=== PATIENT | female | born 1990 | race Caucasian/White ===

== ENCOUNTER 2017-07-02 09:00 | Outpatient (RCR) | payer MEDICAID, SELFPAY ==
--- NOTE | 2017-07-02 12:13 | BH.SGPN ---
Service Group Progress Note - Session Psychotherapy Session #1 Date Open:: 07/02/17 Time Started:: 09:13 Time Stopped:: 10:03 Targeted Problem #:: 1 Type of Group:: Process Goal of Group:: The goal of today's group was to check-in with client's mood, stressors, and positives, review homework and introduce topic for the day. Client Response/Progress/Benefit:: Client reported feeling anxious and nervous given today is her first day in the program and she has never done any sort of group therapy before. Client reported she is seeking help because she has difficulty with managing her emotions. She explained that she can either be really angry at times or be crying for hours and not really know what to do manage those emotions. Client seemed to benefit from being oriented to the group process as well as receiving support from peers. Eye Contact:: Good Motor Activity:: Appropriate Appearance:: Casual Speech:: Appropriate Mood:: Anxious Affect:: Congruent Thoughts:: Linear, Logical, No evidence of hallucinations/delusions noted Staff Interventions:: Therapist used open-ended questions to elicit information about client's current stressors and mood state. Therapist was supportive by using active listening and reflection.
--- NOTE | 2017-07-02 14:07 | BH.SGPN ---
Service Group Progress Note - Session Psychotherapy Session #2 Date Open:: 07/02/17 9 group members Time Started:: 10:17 Time Stopped:: 11:15 Targeted Problem #:: 1 Type of Group:: Illness Management Goal of Group:: To increase understanding of what stress is, identify current life stressors, and connect impact stressors have on mental health. Client Response/Progress/Benefit:: Client responded well to session, quiet unless prompted by therapist. Client appeared to connect with the quote nodding to comments made by peers. Client shared I seem to stress about everything. Client helped the group process eustress versus unhealthy, chronic stress. Client identified her major stressors to be money, relationships, and feeling responsible for everyone's needs. Client stated her stress jar is overflowing and I can't manage my emotions. Client stated as a result she gets angry and has increased crying spells. Client appeared to benefit from gaining awareness of her personal stressors and how stress impacts mental health. Eye Contact:: Good Motor Activity:: Appropriate Appearance:: Casual Speech:: Appropriate Mood:: Anxious Affect:: Congruent Thoughts:: Linear, No evidence of hallucinations/delusions noted Staff Interventions:: Therapist facilitated discussion about stress. Therapist facilitated an activity in which group members were asked to identify various stressors they have in their life currently. Therapist instructed group members to indicate if certain stressors were larger than others. Therapist led processing of each member?s stress jar and helped them connect impact the stress has on their mental health. Psychotherapy Session #3 Date Open:: 07/02/17 group members Time Started:: 11:25 Time Stopped:: 12:15 Targeted Problem #:: 1 Type of Group:: Functional Skills Development Goal of Group:: To identify what stressors have control over and what stressors have no control over. Another goal was to increase repertoire of healthy strategies to help manage stress. Client Response/Progress/Benefit:: Client responded well to session, active participant. Client appeared to connect with the activity stating, you have to tell your emotions to your supports. Client helped group process the importance of focusing on stressors in her control versus out of her control. Client identified working on managing emotions as a stressor in her control. Client helped the group develop stress management strategies including: deep breathing, prioritizing, communicating with supports, and having a plan. Client appeared to benefit from increasing her repertoire of stress reduction techniques. Eye Contact:: Good Motor Activity:: Appropriate Appearance:: Casual Speech:: Appropriate Mood:: Euthymic Affect:: Congruent Thoughts:: Linear, No evidence of hallucinations/delusions noted Staff Interventions:: Therapist facilitated discussion about control versus no control and helped group members connect the concept to stressors. Therapist led discussion about importance of putting forth more energy on those stressors they can control. Therapist led an activity aimed at inducing stress to help clients use in the moment coping strategies and support. Therapist facilitated brainstorming of strategies to help manage stress level. Therapist provided support by using active listening and providing feedback.
--- NOTE | 2017-07-02 14:27 | BH.COMM ---
Communication Note - Communication with Client Communication Note: This therapist met with client to follow up as it was client's first day in IOP. Client reported she enjoyed the first day as she felt encouraged to share her emotions and client connected with the topic. Therapist provided emotional support and answered client's question about IOP. Therapist informed client her individual therapist will meet with her this week or next.
--- NOTE | 2017-07-02 14:31 | BH.COMM_ITS ---
Communication Note - Communication with Client Communication Note: This therapist met with client to follow up as it was client 's first day in IOP. Client reported she enjoyed the first day as she felt encouraged to share her emotions and client connected with the topic. Therapist provided emotional support and answered client's question about IOP. Therapist informed client her individual therapist will meet with her this week or next.
--- NOTE | 2017-07-03 15:45 | BH.SGPN ---
Service Group Progress Note - Session Psychotherapy Session #1 Date Open:: 07/03/17 Time Started:: 09:10 Time Stopped:: 10:00 Type of Group:: Process - 6 group members Goal of Group:: The goal of today's group was to check-in with client's mood, stressors, and positives, review homework and introduce topic for the day. Client Response/Progress/Benefit:: Active participant in group discussions. Emotion for today is irritated. Shared with the group some frustration related to upcoming court issues. Reports increased stress and overwhelming emotions. Vented frustrations to the group. Was able to identify main concern being lack of control over the court issues and the court's decision. Group was able to provide feedback on managing anxiety related to situation in which we have no control. Pt was receptive. Progress noted in regards to increased awareness. Benefited from group support and feedback. Will continue in IOP to decrease depression, prevent decompensation, and stabilize mood. Eye Contact:: Good Motor Activity:: Restless Appearance:: Casual Speech:: Appropriate Mood:: Anxious, Depressed Affect:: Congruent Thoughts:: Linear, Logical, No evidence of hallucinations/delusions noted Staff Interventions:: Therapist used open-ended questions to elicit information about client's current stressors and mood state. Therapist was supportive by using active listening and reflection
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
--- NOTE | 2017-07-04 14:45 | BH.SGPN_ITS ---
Service Group Progress Note - Session Psychotherapy Session #3 Date Open:: 07/04/17 - 10 group members Time Started:: 11:25 Time Stopped:: 12:15 Targeted Problem #:: 1 Type of Group:: Functional Skills Development Goal of Group:: To identify personal barriers that get in the way of accomplishing tasks and identify internal and external resources to help overcome difficult situations. Client Response/Progress/Benefit:: Client responded well to session, active participant. Client reported ?most of the time I think I?ll never overcome the situation I?m in? which makes client avoid solutions and increases her depression. Client shared filing for divorce and getting out of an unhealthy relationship as an example of a time when client overcame an impossible situation. Client stated that communication and support from others are needed to overcome challenging situations. Client helped the group develop a list of internal and external resources to help overcome impossible situations. Client stated ?I will always tell myself everything is possible? as a way to promote recovery. Client appeared to benefit from increasing insight of internal and external resources that will help client overcome mental health barriers. Eye Contact:: Good Motor Activity:: Appropriate Appearance:: Casual Speech:: Appropriate Mood:: Euthymic Affect:: Congruent Thoughts:: Linear, No evidence of hallucinations/delusions noted Staff Interventions:: Therapist facilitated discussion about internal and external resources and helped clients connect various internal resources they use. Therapist provided group members with a handout that gave information about various external resources the clients could utilize to get support. Therapist gave clients a worksheet in which they were asked to identify several barriers that get in their way to overcoming difficult situations. They also were asked to identify several internal and external resources they could use when needed.
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
--- NOTE | 2017-07-04 15:34 | BH.DR.ITP ---
Initial Treatment Plan - Patient Information Visit Information: ADMISSION DATE: EXPECTED LOS: 4-6 weeks Diagnoses:: Bipolar 2 F 31.81. PTSD - Problems/Symptoms Problem #1:: Mood instability Symptom:: Mood cycling, depression, hypomania, biologic disruption of sleep and appetite, passive thoughts of Symptom:: Anxiety Problem #2:: rumination, intrusive traumatic thoughts
--- NOTE | 2017-07-07 10:51 | BH.SGPN_ITS ---
Service Group Progress Note - Session Psychotherapy Session #2 Date Open:: 07/03/17 Time Started:: 10:13 Time Stopped:: 11:13 Targeted Problem #:: 1 Type of Group:: Illness Management - 7 participants Goal of Group:: To increase understanding of a crisis and improve client?s awareness of personal warning signs before crisis. Eye Contact:: Good Motor Activity:: Appropriate Appearance:: Casual Speech:: Appropriate Mood:: Euthymic Affect:: Congruent Thoughts:: Linear, Logical, No evidence of hallucinations/delusions noted Staff Interventions:: Therapist facilitated group discussion about defining a crisis and specifying various events that are considered a crisis. Therapist led group in an activity in which group members had to identify their thoughts and emotions attached to being in a crisis. Therapist provided support by using active listening and providing feedback. Psychotherapy Session #3 Date Open:: 07/03/17 Time Started:: 11:22 Time Stopped:: 12:24 Targeted Problem #:: 1 Type of Group:: Functional Skills Development - 7 participants Goal of Group:: To increase awareness of warning signs before a crisis and identify interventions/coping strategies that would help clients proactively manage potential crises. Eye Contact:: Good Motor Activity:: Appropriate Appearance:: Casual Speech:: Appropriate Mood:: Euthymic Affect:: Congruent Thoughts:: Linear, Logical, No evidence of hallucinations/delusions noted Staff Interventions:: Therapist led the group in discussion about identifying personal warning signs before a crisis and importance of being aware of those signs. Therapist provided the group with various types of items and asked each group member to select five items that represent something that would be helpful in managing their warning signs of a crisis. Therapist facilitated group proc essing of the crisis emergency kits each group member created. Therapist used open-ended questions to encourage elaboration of each item chosen for their kit. Therapist helped clients connect how the crisis emergency kit could help be a crisis prevention tool.
--- NOTE | 2017-07-07 15:00 | BH.SGPN_ITS ---
Service Group Progress Note - Session Psychotherapy Session #2 Date Open:: 07/07/17 group members Time Started:: 10:17 Time Stopped:: 11:15 Targeted Problem #:: 1 Type of Group:: Illness Management Goal of Group:: To increase understanding of communication and the various types of communication. Another goal was to increase understanding of impact communication styles can have. Client Response/Progress/Benefit:: Client responded well to session, quiet at times, but providing input occasionally. Client seemed to connect with the quote sharing she has a hard time communicating ?my emotions in the correct way. ? Client helped the group identify barriers to communication such as depression , anxiety, high emotions, and mind-reading. Client helped group identify various communication styles and reported she uses ?mostly passive? as client tends to avoid communicating needs as she does not want conflict. Client shared at times she can be aggressive ?if I get attacked I?ll attack back.? Client stated these communication styles negatively impact client?s mental health ? because I let my emotions take over.? Client appeared to benefit from learning the different types of communication styles as well as increasing awareness of how communication impacts mental health. Client progressing as shown by her increased insight to how emotional regulation will improve client?s communication. Eye Contact:: Good Motor Activity:: Appropriate Appearance:: Disheveled Speech:: Appropriate Mood:: Euthymic Affect:: Congruent Thoughts:: Linear, No evidence of hallucinations/delusions noted Staff Interventions:: Therapist facilitated the group discussion about communication and explained the different types of communication. Therapist assisted group members in connecting the communication styles to the way they communicate and impact the communication style has on their relationships. Therapist provided support by using active listening and providing feedback. Psychotherapy Session #3 Date Open:: 07/07/17 group members Time Started:: 11:25 Time Stopped:: 12:15 Targeted Problem #:: 1 Type of Group:: Functional Skills Development Goal of Group:: To identify important components of communication and practice specific, clear communication. Client Response/Progress/Benefit:: Client responded well to session, active participant. Client reported she wants to work on being more assertive, so in the activity she practiced remaining calm and being direct even when her partner was confused. Client helped the group identify strategies to increase assertive communication including being aware of body language and tone of voice , expressing warning signs and triggers with supports, and managing emotions. Client reported she plans to work on being more assertive ?by not letting my emotions take over.? Client appeared to benefit from identifying ways to improve her communication. Client seems to be progressing as shown by her willingness to implement assertive communication with her supports, but can continue to have awareness of warning signs. Eye Contact:: Good Motor Activity:: Appropriate Appearance:: Disheveled Speech:: Appropriate Mood:: Euthymic Affect:: Constricted Thoughts:: Linear, No evidence of hallucinations/delusions noted Staff Interventions:: Therapist led the discussion about important components of effective communication. Therapist provided each group member with the same three materials and broke the group into pairs. Therapist facilitated a communication activity in which the group members would have to achieve a goal by using effective communication to achieve such goal. Therapist processed the activity with the group.
--- NOTE | 2017-07-07 15:04 | BH.SGPN_ITS ---
Service Group Progress Note - Session Psychotherapy Session #1 Date Open:: 07/07/17 Time Started:: 09:05 Time Stopped:: 10:00 Type of Group:: Process - 6 group members Goal of Group:: The goal of today's group was to check-in with client's mood, stressors, and positives, review homework and introduce topic for the day. Client Response/Progress/Benefit:: Active participant in group discussion. Provided feedback when appropriate. Shared with the group that she had stepped out of her comfort zone this past weekend by going to [place] [employer] with her . Discussed how this trip was an anxiety producing situation, however she felt confident she could manage her symptoms. Continues to struggle with lack of control over certain situations in her life. Group provided feedback on this. Emotion for today is anxious. Progress noted as she was able to step out of her comfort zone with increased confidence this past weekend. Benfited from group support and feedback. Continued treatment to stablize mood, prevent decompensation, and decrease depression/anxiety. Eye Contact:: Good Motor Activity:: Appropriate Appearance:: Casual Speech:: Appropriate Mood:: Anxious Affect:: Congruent Thoughts:: Linear, Logical, No evidence of hallucinations/delusions noted Staff Interventions:: Therapist used open-ended questions to elicit information about client's current stressors and mood state. Therapist was supportive by using active listening and reflection.
--- NOTE | 2017-07-07 15:51 | BH.MDN ---
Multi-Disciplinary Note - Note 60-min Individual Time Started:: 12:28 Date: 07/07/17 Time Stopped:: 13:25
--- NOTE | 2017-07-07 15:51 | BH.MTP ---
Master Treatment Plan - Patient Information Program Physician:: Cris Pal Primary Therapist:: April Arceo - Psychiatric Diagnoses Psychiatric Diagnoses:: Diagnosis. Bipolar 2 disorder of . Anxiety unspecified. PTSD. Opiate use disorder. Cannabis use disorder Diagnosis Code(s):: F - Estimated LOS Estimated LOS (in weeks):: 6
--- NOTE | 2017-07-09 15:20 | BH.SGPN ---
Service Group Progress Note - Session Psychotherapy Session #1 Date Open:: 18 - 8 group members Time Started:: 09:06 Time Stopped:: 10:15 Targeted Problem #:: 1 Type of Group:: Process Goal of Group:: The goal of today's group was to check-in with client's mood, stressors, and positives, and review homework. Client Response/Progress/Benefit:: Client responded well to session, active participant. Client reports feeling calm and hopeful today as client met with her privacy attorney yesterday and reports they think things will go in my favor. Client shared there are components in the case out of client's control that could potentially increase anxiety, but client shared she has been focusing on stressors in her control which has helped client manage emotions. Client reflected on positive coping skills she has been using such as writing and going to mosque. Client appeared to benefit from focusing on stressors in her control. Client seems to be progressing with increased insight to warning signs and generalizing healthy coping skills, but can continue to benefit from emotional regulation. Eye Contact:: Fair Motor Activity:: Appropriate Appearance:: Casual Speech:: Appropriate Mood:: Euthymic Affect:: Constricted Thoughts:: Linear, No evidence of hallucinations/delusions noted Staff Interventions:: Therapist used open-ended questions to elicit information about client's current stressors and mood state. Therapist was supportive by using active listening and reflection.
--- NOTE | 2017-07-09 15:27 | BH.SGPN_ITS ---
Service Group Progress Note - Session Psychotherapy Session #1 Date Open:: 18 - 8 group members Time Started:: 09:06 Time Stopped:: 10:15 Targeted Problem #:: 1 Type of Group:: Process Goal of Group:: The goal of today's group was to check-in with client's mood, stressors, and positives, and review homework. Client Response/Progress/Benefit:: Client responded well to session, active participant. Client reports feeling calm and hopeful today as client met with her associate attorney yesterday and reports they think things will go in my favor. Client shared there are components in the case out of client's control that could potentially increase anxiety, but client shared she has been focusing on stressors in her control which has helped client manage emotions. Client reflected on positive coping skills she has been using such as writing and going to [employer]. Client appeared to benefit from focusing on stressors in her control. Client seems to be progressing with increased insight to warning signs and generalizing healthy coping skills, but can continue to benefit from emotional regulation. Eye Contact:: Fair Motor Activity:: Appropriate Appearance:: Casual Speech:: Appropriate Mood:: Euthymic Affect:: Constricted Thoughts:: Linear, No evidence of hallucinations/delusions noted Staff Interventions:: Therapist used open-ended questions to elicit information about client's current stressors and mood state. Therapist was supportive by using active listening and reflection.
--- NOTE | 2017-07-09 16:15 | BH.SGPN ---
Service Group Progress Note - Session Psychotherapy Session #2 Date Open:: 07/09/17 Time Started:: 10:20 Time Stopped:: 11:15 Targeted Problem #:: 1 Type of Group:: Illness Management - 7 group members Goal of Group:: To increase understanding of cognitive distortions, identify examples of when have had unhelpful thinking, and increase awareness of the impact cognitive distortions have on mental health. Client Response/Progress/Benefit:: Pt listened attentively to others, at times she contributed to discussion. Pt connected with others about impact thoughts can have on ability to function. Pt able to identify various distorted thought patterns and connect impact the thought has on emotions and behavior. Pt reported she learned it's important to be aware if she is jumping to the negatives and be mindful if she is using should and must. Pt seemed to benefit from increasing awareness of cognitive distortions. Eye Contact:: Fair Motor Activity:: Appropriate Appearance:: Casual Speech:: Appropriate Mood:: Anxious, Dysthymic Affect:: Constricted Thoughts:: Linear, Logical, No evidence of hallucinations/delusions noted Staff Interventions:: Therapist provided group members with a handout that listed ten cognitive distortions with examples. Therapist facilitated group discussion about cognitive distortions. Therapist led group members in an activity to help them understand the impact cognitive distortions can have on emotions and behavior. Therapist provided support by using active listening and providing feedback. Psychotherapy Session #3 Date Open:: 07/09/17 Time Started:: 11:30 Time Stopped:: 12:20 Targeted Problem #:: 1 Type of Group:: Functional Skills Development - 7 group members Goal of Group:: To identify ways of defeating cognitive distortions and rehearse defeating the identified cognitive distortion. Client Response/Progress/Benefit:: Pt contributed positively to discussion and listened attentively to others. Pt engaged in challenge activity, adding her thoughts and ideas. Pt worked cooperatively with others to reframe distorted thoughts. Pt identified she is going to apply today's topic in her daily life by being more aware of the wording she uses, focus more on the positives versus going to the negatives right away. Pt seemed to benefit from practicing reframing distorted thought patterns. Eye Contact:: Fair Motor Activity:: Appropriate Appearance:: Casual Speech:: Appropriate Mood:: Anxious, Dysthymic Affect:: Constricted Thoughts:: Linear, Logical, No evidence of hallucinations/delusions noted Staff Interventions:: Therapist utilized an activity as a tool in helping clients connect the amount of effort one will need to put forth to defeat cognitive distortions. Therapist provided group members with a handout to use as an aid when trying to defeat their unhelpful thinking. Therapist processed the worksheet with group members, helping them reframe the cognitive distortions.
--- NOTE | 2017-07-10 10:41 | BH.SGPN_ITS ---
Service Group Progress Note - Session Psychotherapy Session #1 Date Open:: 18 - 6 group members Time Started:: 09:06 Time Stopped:: 10:03 Targeted Problem #:: 1 Type of Group:: Process Goal of Group:: The goal of today's group was to check-in with client's mood, stressors, and positives, and review homework. Client Response/Progress/Benefit:: Client responded well to session, receptive to feedback given by peers. Client reports feeling tired, anxious, but mostly happy today as client spent yesterday evening helping a friend in need which resulted in client taking on too much and having increased anxiety. Client shared she is very empathetic, especially with mental health and substance abuse , which led client to reach out to a friend who was expressing suicidal thoughts. Client reported she is glad to have helped, but I always try to help too much and then I get exhausted myself. Client was receptive to group feedback on how to balance empathy and self-care through boundary setting. Client reported she plans to manage her stress today through writing and identifying personal boundary rules. Client stated, I need to know I can only do so much for others. Client appeared to benefit from gaining ideas and emotional support from group members. Client progressing as shown by report of increased self-awareness, but can continue to benefit from setting healthy boundaries. Eye Contact:: Good Motor Activity:: Appropriate Appearance:: Casual Speech:: Appropriate Mood:: Euthymic, Anxious Affect:: Congruent - client became tearful when talking about a friend who is struggling Thoughts:: Linear, No evidence of hallucinations/delusions noted Staff Interventions:: Therapist used open-ended questions to elicit information about client's current stressors, use of coping skills, and mood state. Therapist was supportive by using active listening and reflection.
--- NOTE | 2017-07-10 15:37 | BH.SGPN ---
Service Group Progress Note - Session Psychotherapy Session #2 Date Open:: 07/10/17 Time Started:: 10:14 Time Stopped:: 11:12 Targeted Problem #:: 1 Type of Group:: Illness Management - 5 participants Goal of Group:: To identify the importance of change, increase understanding of difficulty of making change, identify what clients would like to make changes in and identify the barriers or obstacles that get in the way of change. Staff Interventions:: Therapist facilitated discussion about change and helped client?s make connections of why change is important. Therapist led group in an experiential activity which involved client?s identifying changes want to make and barriers that get in the way of making those changes. Therapist utilized activity as a tool to help client?s make connections of difficulties in making changes and identify what helps overcome barriers to change. Psychotherapy Session #3 Date Open:: 07/10/17 Time Started:: 11:20 Time Stopped:: 12:10 Targeted Problem #:: 1 Type of Group:: Functional Skills Development - 7 participants Goal of Group:: To identify specific barriers to an identified change clients would want to make and identify ways to overcome those barriers. Staff Interventions:: Therapist facilitated discussion about what helped the group overcome challenges that came about during the experiential activity. Therapist utilized the activity as a tool in relating those experiences to ways to overcome barriers with challenges in their life when trying to make change. Therapist group into smaller groups and had them brainstorm ways to overcome certain barriers to their identified change. Therapist provided support by using reflective listening and providing feedback.
--- NOTE | 2017-07-11 15:12 | BH.COMM ---
Communication Note - Communication with Client Communication Note: Therapist followed-up with CLient as she no showed for her scheduled appointment on this date. CLient indicated that she did not have her phone on her to call and cancel this morning but that her daughter had returned from CLient mother's home early and client did not have a sitter. Client indicates plans to attend IOP program on Friday 07/14.
[2017-08-22 11:33] VITALS: BP 107/76; PULSE 74; RESP 14
== END 2017-07-12 23:59 ==
LOC: BHIOP 09:00
PROVIDERS: Visit Provider Psychiatry & Neurology Psychiatry
DX: F31.81 Bipolar II disorder (principal); F41.9 Anxiety disorder, unspecified; F43.10 Post-traumatic stress disorder, unspecified; F11.20 Opioid dependence, uncomplicated; F12.20 Cannabis dependence, uncomplicated
CPT/HCPCS: 99204; H0035; H2012; H2020; T1002; 90837

== ENCOUNTER 2017-07-14 09:00 | Outpatient (RCR) | payer MEDICAID, SELFPAY ==
[2017-07-13 01:20] VITALS: PULSE 74; RESP 14
--- NOTE | 2017-07-14 12:14 | BH.SGPN ---
Service Group Progress Note - Session Psychotherapy Session #1 Date Open:: 07/14/17 Time Started:: 09:05 Time Stopped:: 10:04 Targeted Problem #:: 1 Type of Group:: Process - 7 group members Goal of Group:: The goal of today's group was to check-in with client's mood, stressors, and positives, review homework and introduce topic for the day. Client Response/Progress/Benefit:: Client reported she spent a lot of time with her daughter and her daughter had couple friends over. Client shared there were several times over the weekend she was annoyed, but used healthy skills like looking for the positives of the situation. Client reported she is feeling anxious today because she has decided to move forward by putting a motion in for no more overnight visits for her daughter to visit daughter's grandmother. Client expressed frustration with daughter's paternal side of the family and has decided it's time to take action and stand up for herself and her daughter. Client demonstrating progress as evidenced by increased self confidence, setting boundaries and using healthy skills. Client seemed to benefit from expressing thoughts and emotions as well as support from others. Eye Contact:: Good Motor Activity:: Appropriate Appearance:: Casual Speech:: Appropriate Mood:: Euthymic Affect:: Congruent Thoughts:: Linear, Logical, No evidence of hallucinations/delusions noted Staff Interventions:: Therapist used open-ended questions to elicit information about client's current stressors and mood state. Therapist was supportive by using active listening and reflection.
--- NOTE | 2017-07-14 14:00 | BH.SGPN_ITS ---
Service Group Progress Note - Session Psychotherapy Session #2 Date Open:: 07/14/17 group members Time Started:: 10:17 Time Stopped:: 11:14 Targeted Problem #:: 1 Type of Group:: Illness Management Goal of Group:: The goal of group was to increase understanding of coping strategies and impact problems have on self. Another goal was to practice utilizing coping skills in the moment. Client Response/Progress/Benefit:: Client responded well to session, engaged in discussion. Client appeared to connect with the quote, sharing ?sometimes problems are the problem, but a lot of the time it?s us dealing with it.? Client discussed healthy versus unhealthy coping skills and shared coping skills are often learned or developed to adjust to a situation. Client shared in the past she has used unhealthy coping skills to numb and avoid, and others in the group connected with this as well. Client participated in an activity aimed to help client's use in the moment coping strategies. Client shared ?I was getting really frustrated, but I don?t give up easy.? Client reported it is important to have a good base of internal and external coping skills. Client appeared to benefit from increasing awareness of how one learns coping skills and the importance of having a balance of internal and external coping skills. Client demonstrating progress with setting boundaries and focusing on self-care , but can continue to benefit from ongoing emotional regulation. Eye Contact:: Good Motor Activity:: Appropriate Appearance:: Casual Speech:: Appropriate Mood:: Euthymic, Irritable - during activity Affect:: Constricted Thoughts:: Linear, No evidence of hallucinations/delusions noted Staff Interventions:: Therapist facilitated the group discussion about coping strategies. Therapist provided group members with folders and gave them the challenge to work together and build the tallest tower with the given supplies. Therapist utilized the activity as a tool to process what it feels like when dealing with problems and what strategies they used to cope throughout activity. Psychotherapy Session #3 Date Open:: 07/14/17 - group members Time Started:: 11:22 Time Stopped:: 12:15 Targeted Problem #:: 1 Type of Group:: Functional Skills Development Goal of Group:: Goal was to increase client?s self-awareness on their use of coping strategies and increase repertoire of healthy coping strategies. Client Response/Progress/Benefit:: Client responded well to session, providing ideas during discussion. Client helped the group develop a list of coping skills for the following categories: distraction, self-love, thought challenge, emotional release, and grounding. Client stated, ?you have to use all of them, not just one kind.? Client created a 'coping skills menu' which included, listening to music, cleaning, calling a positive support, coloring, walking goal setting, prayer, and using thought logs. Client reported she has been working to implement healthy coping skills for emotional release, but shared she can increase her use of thought challenging skills. Client appeared to benefit from gaining awareness of the various types of coping skills and the purpose each category serves. Client progressing as evidenced by her report of generalizing healthy coping skills, but can continue to benefit from consistency and ongoing mood stability. Eye Contact:: Good Motor Activity:: Appropriate Appearance:: Casual Speech:: Appropriate Mood:: Euthymic Affect:: Congruent Thoughts:: Linear, No evidence of hallucinations/delusions noted Staff Interventions:: Therapist facilitated discussion about the different types of coping skills. Therapist led group in an activity in which group members were asked to brainstorm coping strategies that fit in each coping skill category. Therapist reviewed each coping strategy with the group and led a discussion about whether the coping strategies identified were healthy or unhealthy. Therapist provided homework in which group members creating a coping skills menu and would practice two skills a day.
--- NOTE | 2017-07-14 14:12 | BH.MDN_ITS ---
Multi-Disciplinary Note - Note 60-min Individual Time Started:: 12:27 Date: 07/14/17 Purpose of session/treatment goals addressed:: The purpose of this session was to check-in with Client regarding current stressors, use of healthy coping skills, and symptom management. Another goal was to increase Client understanding of Bipolar diagnosis and aid Client in identifying common symptoms and warning signs for len and depression to begin identifying appropriate coping mechanisms Client may use during these times. Provided Client with worksheet to begin tracking mood throughout the week to identify potential patterns, triggers, warning signs. Eye Contact:: Good Motor Activity:: Appropriate Appearance:: Casual Speech:: Appropriate Mood:: Euthymic Affect:: Full, Congruent Thoughts:: Linear, Logical, No evidence of hallucinations/delusions noted Staff Interventions:: Therapist asked open-ended questions to ellicit additional information regarding Client current symptoms, stressors, and treatment goal progress. Provided psychoeducation regarding Bipolar Disorder, common symptoms, behaviors and implications on mental health. Worked with Client on identifying symptoms and warning signs personally experienced as well as introduced concept of mood tracking for Client to begin identifying potential patterns, warning signs, triggers. Therapist discussed with Client goals for upcoming family session with her eduardo?. Client Response:: Client well engaged and attentive throughout session. She discussed having had a good weekend as she and her firadha? had gone to a [place] and spent some quality time together. Client discussed feeling proud of herself as her firadha? had given her $70 to spend while he played besomebody. and she was able to successfully refrain from spending any money. Client shared that prior to beginning IOP program should would have blown right through all that. Client additionally expressed pride in her ability to refrain from consuming more than 1 alcoholic beverage. Client discussed feeling somewhat anxious while in the casino but found that focusing on the present and trying to remind herself to reframe her thoughts helped prevent her anxiety from escalating and stopped Client from resorting to negative forms of coping. Client expressed genuine interest in increasing her understanding of recent Bipolar dx as she has had no previous education as to what dx means. Therapist discussed symptoms of hypomania, len, and depression with Client who was able to make connections between information discussed and previous symptoms. CLient discussed feeling as though she can relate to many of the symptoms described both within the manic and depressive states. CLient went on to elaborate upon experiencing increased agitation, starting and not completing tasks, as well as impulsivity. She was open to the idea of tracking her mood daily in order to begin identifying potential patterns of behavior/triggers/warning signs and responded well to the suggestion of asking supports if they notice anything that may signal moods shifting. Client discussed she would like to continue to work on increasing understanding of Bipolar Disorder effective ways her supports may assist her during the family session scheduled for . Risks/Concerns:: Client denies any active SI, plan, or intent as of 07/14. She identifies her daughter and eduardo? as her greatest motivators to continue to work on managing mental health symptoms. Client is future oriented as she discussed plans to meet with her employee benefits attorney this week as well as indicates intending to attend group tomorrow. Client expressed an ability to maintain safety, is aware of crisis resources, and willing to seek help if needed. Progress Toward Goals/Plan:: Progress made. Client reports decreased agitation, crying episodes, and verbal outbursts since beginning the IOP program. She attributes this to increased insight into her own mental health symptoms as well as beginning to establish healthy coping skills. Client indicates increased ability to challenge negative thoughts when they occur and is beginning to see things more positively. Client reports continued difficulties in managing her anger related to past trauma which has impacted client's anxiety at times and led to negative self-talk. Client reports wanting to continue to improve emotion regulation skills as well as increase healthy supports. Plan is to continue with current tx goals and remain in IOP program to further improve healthy utilization of skills learned. Time Stopped:: 13:20
--- NOTE | 2017-07-16 11:35 | BH.SGPN ---
Service Group Progress Note - Session Psychotherapy Session #1 Date Open:: 18 - 8 participants Time Started:: 09:03 Time Stopped:: 10:10 Targeted Problem #:: 1 Type of Group:: Process Goal of Group:: The goal of today's group was to check-in with client's mood, stressors, and positives, and review homework. Client Response/Progress/Benefit:: Client responded well to session, open about her recent setbacks. Client reports feeling exhausted today as client woke up in a crying spell yesterday and couldn't take it. Client at first was unable to identify a trigger, but then reported it could have been due to severe tooth pain and therapy opening a lot of old stuff. Client shared although she was thrown off by her crying, she recognized I didn't let it consume my whole day. Client reported she tried to focus on positives, which demonstrates progress as client stated in the past I would have been negative all day. Client appeared to benefit from processing yesterday's setback and identifying ways she can grow from the experience. Client seems to be progressing as shown by her report of more improved emotional regulation skills and using more open communication. However, client can continue to benefit from IOP to promote mood stability. Eye Contact:: Good Motor Activity:: Restless - AEB shaking leg Appearance:: Neat Speech:: Appropriate Mood:: Anxious Affect:: Constricted Thoughts:: Linear, No evidence of hallucinations/delusions noted Staff Interventions:: Therapist used open-ended questions to elicit information about client's current stressors and mood state. Therapist was supportive by using active listening and reflection.
--- NOTE | 2017-07-17 14:39 | BH.SGPN ---
Service Group Progress Note - Session Psychotherapy Session #2 Date Open:: 07/17/17 - 7 group members Time Started:: 10:10 Time Stopped:: 11:03 Targeted Problem #:: 1 Type of Group:: Illness Management Goal of Group:: To increase understanding of pitfalls and impact can have on mental health. Client Response/Progress/Benefit:: Client responded well to session, active participant. Client connected with quote stating, ?nothing in life is easy, so you might as well take the right path.? Client identified pitfalls as difficulties, setbacks, and hardships. Client shared not being able to say ?no? is a pitfall. Client shared gaining awareness, managing emotional reaction, and being willing to accept help are all needed to avoid pitfalls. Client appeared to benefit from increasing awareness of how pitfalls impact mental health. Progress noted as shown by client?s generalization of coping skills, but can continue to benefit from emotional regulation. Eye Contact:: Good Motor Activity:: Appropriate Appearance:: Casual Speech:: Appropriate Mood:: Anxious Affect:: Full Thoughts:: Linear, No evidence of hallucinations/delusions noted Staff Interventions:: Therapist facilitated discussion about pitfalls and assisted group in identifying common pitfalls that can set you back. Therapist led group in an activity to help group understand impact pitfalls can have on oneself and identify strategies that could help you get back on the right path. Therapist provided support by using active listening and providing feedback. Psychotherapy Session #3 Date Open:: 07/17/17 - 6 group members Time Started:: 11:10 Time Stopped:: 12:10 Targeted Problem #:: 1 Type of Group:: Functional Skills Development Goal of Group:: To identify personal pitfalls and what keeps them stuck from moving forward. Client Response/Progress/Benefit:: Client responded well to session, providing good insight. Client identified her personal pitfalls as: negative thinking, low self-esteem, len, impulsivity, and not taking care of physical health. Client shared she plans to use today?s topic by ?knowing my warning signs, keeping awareness, and taking a step back to move forward.? Client also shared reaching out and communicating with her supports will help prevent client from falling into pitfalls. Client appeared to benefit from identifying strategies to keep client from falling into her pitfalls. Client to continue IOP to promote gains and challenging negative thinking. Eye Contact:: Good Motor Activity:: Appropriate Appearance:: Casual Speech:: Appropriate Mood:: Euthymic Affect:: Congruent Thoughts:: Linear, No evidence of hallucinations/delusions noted Staff Interventions:: Therapist facilitated activity in which group members were given the task to identify personal pitfalls and what keeps them stuck from moving past the pitfall. Therapist provided group members with the homework assignment of identifying strategies that can help them overcome pitfalls.
--- NOTE | 2017-07-23 11:51 | BH.SGPN ---
Service Group Progress Note - Session Psychotherapy Session #1 Date Open:: 07/23/17 Time Started:: 09:08 Time Stopped:: 10:08 Targeted Problem #:: 1 Type of Group:: Process - 5 participants Client Response/Progress/Benefit:: Client attentive and responded well to session. She was engaged throughout discussion and provided supportive feedback to fellow participants. 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 CLient went on to described that the agency had recieved false information that put her benefits into question. She shared initially wanting to feed into her anger and verbally lashout at the stockroom keeper in the agency as well as go after the person who she suspected of creating the complications. CLient proudly reported being able to reming herself to take a step back and pump my breaks. She shared using her thought challenging skills to ask herself what's the worst that will happen if I didn't do anything wrong as well a reframed the situation. CLient indicated I knew she wanted to frustrate me which she did at first; but, I was able to tell myself if I don't let it frustrate me she didn't win. Client benefitted reflecting and celebrating her progress in managing agitation with the group. Client recommended continued IOP to further focus on identifying warning signs for agitation and implement preventative strategies. Eye Contact:: Good Motor Activity:: Appropriate Appearance:: Casual Speech:: Appropriate Mood:: Euthymic Affect:: Full Thoughts:: Linear, Logical, No evidence of hallucinations/delusions noted Staff Interventions:: Therapist used open-ended questions to elicit information about client's current stressors and mood state. Therapist was supportive by using active listening and reflection.
--- NOTE | 2017-07-23 12:04 | BH.SGPN_ITS ---
Service Group Progress Note - Session Psychotherapy Session #1 Date Open:: 07/23/17 Time Started:: 09:08 Time Stopped:: 10:08 Targeted Problem #:: 1 Type of Group:: Process - 5 participants Client Response/Progress/Benefit:: Client attentive and responded well to session. She was engaged throughout discussion and provided supportive feedback to fellow participants. Client shared being glad she was back in group as she had to miss the past few days due to a misunderstanding at social media intern. CLient went on to described that the agency had recieved false information that put her benefits into question. She shared initially wanting to feed into her anger and verbally lashout at the tobacco grower in the agency as well as go after the person who she suspected of creating the complications. CLient proudly reported being able to reming herself to take a step back and pump my breaks. She shared using her thought challenging skills to ask herself what's the worst that will happen if I didn't do anything wrong as well a reframed the situation. CLient indicated I knew she wanted to frustrate me which she did at first; but, I was able to tell myself if I don't let it frustrate me she didn't win. Client benefitted reflecting and celebrating her progress in managing agitation with the group. Client recommended continued IOP to further focus on identifying warning signs for agitation and implement preventative strategies. Eye Contact:: Good Motor Activity:: Appropriate Appearance:: Casual Speech:: Appropriate Mood:: Euthymic Affect:: Full Thoughts:: Linear, Logical, No evidence of hallucinations/delusions noted Staff Interventions:: Therapist used open-ended questions to elicit information about client's current stressors and mood state. Therapist was supportive by using active listening and reflection.
--- NOTE | 2017-07-23 15:36 | BH.SGPN_ITS ---
Service Group Progress Note - Session Psychotherapy Session #2 Date Open:: 07/23/17 Time Started:: 10:15 Time Stopped:: 11:15 Targeted Problem #:: 1 Type of Group:: Illness Management - 4 group members Goal of Group:: The goal of today?s group is to identify how emotions can impact our communication skills, and why it is important to be able to communicate in stressful situations. Client Response/Progress/Benefit:: Clinical positively discussion and listened to others. Client shared she tends to lash out on others because she becomes angry when way before she thinks about how she can handle the situation in a calm manner. Client shared she learned it is important to communicate with her supports, think before she acts, keep positive outlook, express her emotions appropriately, and use skills to keep calm. Pt seemed to benefit from increasing awareness of how her typical reaction to heightened emotions can impact her negatively. Affect:: Congruent Thoughts:: Linear, Logical, No evidence of hallucinations/delusions noted Staff Interventions:: Therapist led an experiential activity where group members worked together for a common goal, but with adaptations made on how members were able to communicate with one another. Therapist used open-ended questions to elicit group discussion about emotions which arose during activity , as well as identifying how emotions experienced impacted ability to communicate effectively with other group members. Psychotherapy Session #3 Date Open:: 07/23/17 Time Started:: 11:30 Time Stopped:: 12:20 Targeted Problem #:: 1 Type of Group:: Functional Skills Development - 4 group members Goal of Group:: The goal of todays group was to increase awareness of different states of alertness attached to emotions and identifying healthy coping strategies for each state of alertness. Client Response/Progress/Benefit:: Pt contributed positively to discussion and listened attentively to others. Pt able to identify various emotions for each of the different states of alertness. Pt identified taking a break as a healthy skill for when going into a extremely heightened state of alertness. Pt seemed to benefit from learning about self regulation and identifying various coping strategies that would be most helpful based on her alertness level. Eye Contact:: Good Motor Activity:: Appropriate Appearance:: Casual Speech:: Appropriate Mood:: Euthymic, Irritable Affect:: Congruent Thoughts:: Linear, Logical, No evidence of hallucinations/delusions noted Staff Interventions:: Therapist facilitated group by teaching about the 4 zones of different states of alertness and helping clients connect emotions to each zone based on state of alertness. Therapist assisted clients with identifying healthy coping strategies that would be best utilized based on the state of alertness. Therapist provided support by using active listening and providing feedback.
--- NOTE | 2017-07-24 11:22 | BH.SGPN ---
Service Group Progress Note - Session Psychotherapy Session #1 Date Open:: 07/24/17 Time Started:: 09:10 Time Stopped:: 10:10 Targeted Problem #:: 1 Type of Group:: Process Goal of Group:: The goal of today's group was to check-in with client's mood, stressors, and positives, review homework and introduce topic for the day. Client Response/Progress/Benefit:: Pt reported yesterday when she got home her electric had been shut off which she knew it shouldn't have been because she worked everythign out with the [employer]. Pt shared she was annoyed and wanted to react like she typically would by yelling at the [employer], however pt reported she used positive self talk to help stay calm and instead laughed it off. Pt reported the situation was quickly remedied and she got her electric back within an hour. Pt shared it felt good to be able to stay in control of herself. Pt reported she was very productive the rest of day by cleaning and rearranging her living room. Pt shared she recongizes her energy level has been heightened the past two days which makes her believe shes hypomanic. pt expressed concern about her come down from the hypomania, but wants to use her healthy skills so she doesn't drop to deep depression. Pt showing progress as evidenced by pt using healthy coping strategies in the moment as well as recognizing warning signs of mood shift. Eye Contact:: Good Motor Activity:: Appropriate Appearance:: Casual Speech:: Appropriate Mood:: Euthymic, Other - hypomanic Affect:: Full Thoughts:: Linear, Logical, No evidence of hallucinations/delusions noted Staff Interventions:: Therapist used open-ended questions to elicit information about client's current stressors and mood state. Therapist was supportive by using active listening and reflection.
--- NOTE | 2017-07-24 11:33 | BH.SGPN_ITS ---
Service Group Progress Note - Session Psychotherapy Session #1 Date Open:: 07/24/17 Time Started:: 09:10 Time Stopped:: 10:10 Targeted Problem #:: 1 Type of Group:: Process Goal of Group:: The goal of today's group was to check-in with client's mood, stressors, and positives, review homework and introduce topic for the day. Client Response/Progress/Benefit:: Pt reported yesterday when she got home her electric had been shut off which she knew it shouldn't have been because she worked everythign out with the [employer]. Pt shared she was annoyed and wanted to react like she typically would by yelling at the [employer], however pt reported she used positive self talk to help stay calm and instead laughed it off. Pt reported the situation was quickly remedied and she got her electric back within an hour. Pt shared it felt good to be able to stay in control of herself. Pt reported she was very productive the rest of day by cleaning and rearranging her living room. Pt shared she recongizes her energy level has been heightened the past two days which makes her believe shes hypomanic. pt expressed concern about her come down from the hypomania, but wants to use her healthy skills so she doesn't drop to deep depression. Pt showing progress as evidenced by pt using healthy coping strategies in the moment as well as recognizing warning signs of mood shift. Eye Contact:: Good Motor Activity:: Appropriate Appearance:: Casual Speech:: Appropriate Mood:: Euthymic, Other - hypomanic Affect:: Full Thoughts:: Linear, Logical, No evidence of hallucinations/delusions noted Staff Interventions:: Therapist used open-ended questions to elicit information about client's current stressors and mood state. Therapist was supportive by using active listening and reflection.
--- NOTE | 2017-07-24 14:34 | BH.MDN_ITS ---
Multi-Disciplinary Note - Note 45-min Individual Time Started:: 12:30 Date: 07/16/17 Purpose of session/treatment goals addressed:: The purpose of this session was to engage client's Juan miranda, in the treatment process, provide mental health education, and assist Client in discussing mental health needs and best means for support. Eye Contact:: Good Motor Activity:: Appropriate Appearance:: Casual Speech:: Appropriate Mood:: Euthymic, Anxious Affect:: Congruent Thoughts:: Linear, Logical, No evidence of hallucinations/delusions noted Staff Interventions:: Therapist used open-ended questions to gather information on current stressors, symptoms, use of coping skills, and use of effective communication from Client and her fianc?. Provided mental health education about client's diagnosis and common symptoms and behaviors related to len and d epression, as well as reviewed effective interventions and coping strategies. Therapist supported client in discussing her own mental health experience and facilitated a discussion between client and her fianc? exploring best support strategies. Therapist provided client with homework to continue tracking mood. Risks/Concerns:: Client denies suicidal thoughts, ideation, and plan as of 07/16/17. Client future oriented as she discussed plans to attend group remainder of the week. She reports maintaining consistent emotional since beginning IOP, to which fianc? agreed. Client identified fianc? and daughter as supportive factors. Progress Toward Goals/Plan:: Progress made. Client did well to openly discuss with therapist and her fiance current mental health concerns and work to identify warning signs and triggers. CLient displayed increased understanding regarding her dx and did well to convey her own experience with her fiance. She successfully addressed areas she may need additional support, helpful and unhelpful forms of communication, as well as goals for treatment. Client appears to be well engaged in treatment process and she and her fiance indicate increased trust and communication between them as well as Client increased emotional stability since beginning IOP program. Plan is to continue with current treatment goals and continue to work with client on identifying health coping mechanisms. Time Stopped:: 13:15
--- NOTE | 2017-07-24 14:53 | BH.MDN_ITS ---
Multi-Disciplinary Note - Note 45-min Individual Time Started:: 12:40 Date: 07/24/17 Purpose of session/treatment goals addressed:: The purpose of this session was to work with CLient on further identifying warning signs and triggers for bipolar cycle as well as discussed healthy coping strategies and began to establish a plan for managing the symptoms associated with mood changes throughout these cycles. Eye Contact:: Good Motor Activity:: Restless Appearance:: Casual Speech:: Pressured Mood:: Euthymic Affect:: Full, Bright Thoughts:: Linear, Logical, Racing, No evidence of hallucinations/delusions noted Staff Interventions:: Therapist used open ended questions to elicit information regarding Client current symptoms, stressors, and progress in utilizing coping skills. Used reflective listening and provided supportive feedback as Client discussed current concerns regarding emotion regulation. Worked with Client to review common warning signs for len and depression and worked with Client to identify personal warning signs. Provided education regarding common healthy coping and mclaughlin management strategies as well as assisted Client in beginning to establish Self Care Plan for times of mood cycling. Assigned homework of completing a depression management care plan with Fiance. Client Response:: Client attentive and receptive of session. Indicated wanting to discuss recent mood changes that she has become aware of over the last few days and noted I think I'm starting to get manic. Client did well to work work with this therapist on determining what potential triggers may be impacting mood as well as identify specific symptoms occurring along with shift in emotions. CLient shared struggling significantly with irritability on Friday and described I just woke up hateful...like I resented everyone. She shared that prior to beginning the program this would have impacted her entire day; however, she had been able to take some time to cool off in her room and then successfully regulate her mood the remainder of the day. CLient expressed that she has noticed increased levels of energy and feeling as though I can do anything. Client discussed her fiance verbalizing concern regarding Client increased energy levels. When asked to identify other symptoms she has been experiencing client expressed increased confidence, racing thoughts, rapid speech, decreased focus, and decreased need for sleep. She shared staying up the previous night until 2:30 am cleaning her kitchen. CLient expressed understanding the importance of devising a plan for healthy means of emotional release during manic and hypomanic cycles. She discussed that she and her fiance came up with the idea of creating a garden so that Client can occupy her thoughts and channel increased energy. Client connected with therapist suggestion of setting herself up for success by gathering the things she may need to cope with depressive state while she has the motivation and energy to do so. Client indicated not thinking to regulate how many plans she makes when experiencing hypomanic state and fears she may have over booked herself. She worked with therapist to identify what she may be able to eliminate from her schedule or plan for a later date. Client indicates willingness to work with joseph to develop a depression management plan. Risks/Concerns:: No risks or concerns at this time. Client denies current SI/HI , plan, or intent as of 07/24/17. She is future oriented reporting plans to communicate with her fiyelena this evening and have a playdate for her daughter next week. Client indicates her family as her motivation to live. She is aware of and willing to use crisis resources available shoulf she feel unable to maintain safety. Progress Toward Goals/Plan:: Progress. CLient is displaying significant progress in her level of awareness regarding mental health symptoms and ability to utilize healthy means of coping in order to better manage mood swings. Client reports since beginning IOP program she has experienced fewer crying spells and is experiencing increased emotion regulation. Client has begun implementing a daily mood tracker and has done well to consistently report mood and symptoms associated. SHe has begun to more openly communicate with her supports however continues to struggle in this area as client indicates often fearing letting them down or reacting in frustration. Client recommended continued IOP to further work on treatment goals, increase emotion regulation and consistent use of coping mechanisms. Time Stopped:: 13:15
--- NOTE | 2017-07-25 11:25 | BH.SGPN ---
Service Group Progress Note - Session Psychotherapy Session #2 Date Open:: 07/24/17 Time Started:: 10:20 Time Stopped:: 11:17 Targeted Problem #:: 1 Type of Group:: Illness Management - 6 participants Goal of Group:: The goal of group was to increase understanding of the benefits social support provides in mental health wellness. Another goal was to increase self-awareness of the barriers that prevent client to seeking support or utilizing the support they have. Client Response/Progress/Benefit:: Client was attentive and actively engaged in both the activity and discussion portions throughout. She did well to work with fellow participants in order to complete the activity in which they were challenged to rely on one another to accomplish a task. Client indicated connecting with the topic of social supports and expressed beliefs that she does not reach out to her supports when she shouldn't. SHe was able to identify benefits of utilizing personal supports and noted that she would like to work on understanding ways to better communicate what she is experiencing with her supports. Client benefited from the shared experiences of the group in discussing difficulties with reaching out to supports when needing help. Recommended continued focus on effective communication strategies. Eye Contact:: Good Motor Activity:: Appropriate Appearance:: Casual Speech:: Appropriate Mood:: Euthymic Affect:: Full Thoughts:: Linear, Logical, No evidence of hallucinations/delusions noted Staff Interventions:: Therapist led a group discussion about importance of social supports. Therapist facilitated an activity that required the group members to utilize support from each other. Therapist utilized the activity as a tool to connect the importance of accepting social support. Therapist provided support through reflective listening and giving feedback. Psychotherapy Session #3 Date Open:: 07/24/17 Time Started:: 11:22 Time Stopped:: 12:20 Targeted Problem #:: 1 Type of Group:: Functional Skills Development - 5 participants Goal of Group:: The goal of group was to increase understanding of the different types of social support. Another goal was to identify one type of support the client?s desire and establish one small step towards achieving that support. Client Response/Progress/Benefit:: Client again responded well to session and was engaged throughout. She worked with the group to identify the various forms of social support avaiable as well as potential benefits of each support. Client indicated gaining insight into the number of various different support groups in the area that she had not been previously aware of. Client benefited from reflecting upon what her current supports do to promote her mental health as well as potential areas in which she may be lacking adequate support. Client expressed plans to being tapping into new types of support such as getting involved in a support group locally. Eye Contact:: Good Motor Activity:: Appropriate Appearance:: Casual Speech:: Appropriate Mood:: Euthymic Affect:: Full Thoughts:: Linear, Logical, No evidence of hallucinations/delusions noted Staff Interventions:: Therapist facilitated group discussion on the different types of social support and importance of each type of support. A social support worksheet, was utilized to give clients direction in identifying which type of support they desired, how it will help, and identifying the first small step towards the desired support. Therapist provided homework for each group member to try and accomplish the one small step each group member identified on the worksheet.
--- NOTE | 2017-07-25 11:46 | PCM.PN.BLA ---
Progress Note Patient is seen in follow-up for bipolar 2 disorder F , anxiety unspecified, PTSD, opiate use disorder, cannabis use disorder. History is been obtained per interview with patient, discussion with staff, review of chart. Case discussed with treatment team. Chief complaint I am in a hypomanic state now but more in check Interim history Reports overall increased mood stability with Lamictal. Continued mood cycling but of decreased intensity and more manageable. Reports increased energy since Friday with irritable sleep. Decreased sleep of 3 hours on Friday. She slept 7 hours on Friday and 10 hours last night. She reports some irritability on Friday associated with the start of menses. Reports she is able to use coping skills gained through IOP to manage mood symptoms. Eyes current depression. No suicidal or homicidal ideation. No symptoms consistent with psychosis. Sleeping 6-7 hours per night until this weekend when it became variable. Appetite normal. Denies nausea vomiting or diarrhea. Compliant with medication. Tolerating Lamictal 50 mg p.o. daily. No rash. Has not obtained labs but agrees to obtain labs today. Mahsa? Juan is supportive. Mental status exam Alert and oriented . No acute distress. Ambulatory with normal gait and station. Appears stated age. Casually dressed and groomed. Appropriate hygiene. Cooperative with interview. Good eye contact. No psychomotor agitation or retardation. Mood mildly elevated. Affect congruent. Speech is clear and with regular rate and rhythm. Language fluent. Thought process organized. Associations logical. Thought content significant for ruminative anxiety. No suicidal or homicidal ideation related or detected. No symptoms consistent with psychosis noted or detected. Immediate recent and remote memory grossly intact. Attention and concentration are fair. Estimated intelligence and fund of knowledge average. Judgment and insight good. Labs and testing Patient has requisition for TSH, CMP, vitamin D and beta hCG. She will obtain lab work today. Diagnosis Bipolar 2 disorder F [id number] Anxiety unspecified PTSD Opiate use disorder Cannabis use disorder Plan Continue IOP as the structured setting is necessary to prevent decompensation. Risks benefits alternatives of medications discussed with patient. Patient acknowledges understanding. Increase Lamictal to 75 mg p.o. daily. Encouraged opiate and cannabis abstinence. Encouraged to follow-up at [facility]. Encouraged to obtain lab work. Patient acknowledges understanding and is in agreement with plan. She feels able to maintain safety. She agrees to seek help or emergency care if feeling unsafe to self or others.
--- NOTE | 2017-07-25 15:26 | BH.SGPN ---
Service Group Progress Note - Session Psychotherapy Session #1 Date Open:: 07/25/17 Time Started:: 09:05 Time Stopped:: 10:20 Targeted Problem #:: 1 Type of Group:: Process - 7 group members Goal of Group:: The goal of today's group was to check-in with client's mood, stressors, and positives, review homework and introduce topic for the day. Client Response/Progress/Benefit:: Client reported she is feeling more calm today identifying she believes she is crashing from her hypomania state of the past 2 days. Client shared she was able to get to bed at 10 sleep throughout the night. Client reported feeling nervous that her mood is any continue to drop over the weekend and she did not go into depressive state. However client was able to defensive line coach her self that she does have a skill set in order to keep herself from drop into a deep depressive state. Client showing progress as evidenced by her continued awareness of her mood states as well as increased confidence in her ability to manage her moods. Eye Contact:: Good Motor Activity:: Appropriate Appearance:: Casual Speech:: Appropriate Mood:: Euthymic Affect:: Congruent Thoughts:: Linear, Logical, No evidence of hallucinations/delusions noted Staff Interventions:: Therapist used open-ended questions to elicit information about client's current stressors and mood state. Therapist was supportive by using active listening and reflection.
--- NOTE | 2017-07-25 15:44 | BH.SGPN_ITS ---
Service Group Progress Note - Session Psychotherapy Session #2 Date Open:: 07/25/17 - 8 group members Time Started:: 10:27 Time Stopped:: 11:20 Targeted Problem #:: 1 Type of Group:: Illness Management Goal of Group:: To increase understanding of resilience and identify the factors that contribute to building resilience. Client Response/Progress/Benefit:: Client responded well to session, active participant. Client appeared to connect with the quote stating, ?being rigid doesn?t help you adjust to change.? Client discussed emotional agility, or being emotionally adaptable, can help one overcome difficult emotions and situations. Client shared ?I need to take my mask off and not hid how I feel.? Client helped the group discuss the factors of resiliency such as hope and optimism, confidence, and self-awareness. Client shared being self-aware of triggers and warning signs promotes resiliency as it keeps her from falling into pitfalls. Client appeared to benefit from increasing awareness of resilience. Client progressing with challenging negative thoughts and implementing coping skills, but can continue to benefit from managing anger. Eye Contact:: Good Motor Activity:: Appropriate Appearance:: Casual Speech:: Appropriate Mood:: Euthymic Affect:: Constricted Thoughts:: Linear, No evidence of hallucinations/delusions noted Staff Interventions:: Therapist led group in an activity that would induce a chaotic environment and used the activity as a tool in discussing the various stressors people are faced with each day. Therapist facilitated group discussion about resilience and explained the factors of building resilience. Therapist led discussion about factors that contribute to resilience. Therapist provided support by using active listening and providing feedback. Psychotherapy Session #3 Date Open:: 07/25/17 8 group members Time Started:: :27 Time Stopped:: 12:25 Targeted Problem #:: 1 Type of Group:: Functional Skills Development Goal of Group:: To rehearse resilient factors and identify ways to maintain resilience despite hardships and stressors. Client Response/Progress/Benefit:: Client responded well to session, engaged throughout. Client helped the group complete a task aimed to promote resiliency. Client shared group today improved client?s focus on the importance of setting mini goals and being open-minded to new to increase resilience. Client identified her personal resiliency traits to be ?I don?t give up,? putting in the effort, and being aware of warning signs. Client shared she plans to increase her resilience by ?putting the effort in to make positive changes? as well as reaching out to supports. Client appeared to benefit from increasing awareness of traits client possesses that make her resilient. Client to continue IOP to promote emotional regulation and use of effective communication. Eye Contact:: Good Motor Activity:: Appropriate Appearance:: Casual Speech:: Appropriate Mood:: Irritable Affect:: Constricted Thoughts:: Linear, No evidence of hallucinations/delusions noted Staff Interventions:: Therapist led group in an activity in which group members were challenged to stay resilient despite various stressors and hardships added to activity. Therapist provided each group member with a stress ball and used stress ball as a tool to discuss factors of resilient personality. Therapist provided group members with a handout about the building blocks of resilience. Therapist provided support by using reflective listening.
--- NOTE | 2017-07-28 09:22 | BH.COMM ---
Communication Note - Communication with Client Communication Note: Therapist called client as she no called/no showed for group today. Client reported she had mistakenly signed up for today's session and apologized for the misunderstanding. Client reports plan to attend group tomorrow, 07/29/17.
--- NOTE | 2017-07-29 10:58 | BH.SGPN_ITS ---
Service Group Progress Note - Session Psychotherapy Session #1 Date Open:: 07/29/17 - 6 group members Time Started:: 09:05 Time Stopped:: 10:15 Targeted Problem #:: 1 Type of Group:: Process Goal of Group:: The goal of today's group was to check-in with client's mood, stressors, and positives, and introduce topic for the day. Client Response/Progress/Benefit:: Client responded well to session, active participant and supportive to peers. Client reports feeling hopeful today as client has had multiple stressors, but shared she feels confident in the steps she has taken to manage the situation and her emotions. Client stated her daughter has been having issues with being bullied at school which has caused client to feel frustrated and helpless. However, client recognized her increased self-awareness and emotional regulation skills have allow client to better cope with this stressor. Client shared she plans to focus on self-care today to redu ce stress and maintain progress. Client appeared to benefit from identifying solutions to stressors and receiving positive feedback. Progress noted in client's generalization of coping skills, but can continue to benefit from ongoing emotional regulation. Eye Contact:: Good Motor Activity:: Restless Appearance:: Neat Speech:: Appropriate Mood:: Irritable Affect:: Constricted Thoughts:: Linear, No evidence of hallucinations/delusions noted Staff Interventions:: Therapist used open-ended questions to elicit information about client's current stressors and mood state. Therapist was supportive by using active listening and reflection.
--- NOTE | 2017-07-29 11:28 | BH.SGPN_ITS ---
Service Group Progress Note - Session Psychotherapy Session #1 Date Open:: 07/25/17 Time Started:: 09:05 Time Stopped:: 10:20 Targeted Problem #:: 1 Type of Group:: Process - 7 group members Goal of Group:: The goal of today's group was to check-in with client's mood, stressors, and positives, review homework and introduce topic for the day. Client Response/Progress/Benefit:: Client reported she is feeling more calm today identifying she believes she is crashing from her hypomania state of the past 2 days. Client shared she was able to get to bed at 10 sleep throughout the night. Client reported feeling nervous that her mood is any continue to drop over the weekend and she did not go into depressive state. However client was able to population health coach her self that she does have a skill set in order to keep herself from drop into a deep depressive state. Client showing progress as evidenced by her continued awareness of her mood states as well as increased confidence in her ability to manage her moods. Eye Contact:: Good Motor Activity:: Appropriate Appearance:: Casual Speech:: Appropriate Mood:: Euthymic Affect:: Congruent Thoughts:: Linear, Logical, No evidence of hallucinations/delusions noted Staff Interventions:: Therapist used open-ended questions to elicit information about client's current stressors and mood state. Therapist was supportive by using active listening and reflection.
--- NOTE | 2017-07-30 15:38 | BH.SGPN_ITS ---
Service Group Progress Note - Session Psychotherapy Session #2 Date Open:: 07/30/17 Time Started:: 10:20 Time Stopped:: 11:10 Type of Group:: Illness Management - 9 group members Goal of Group:: To increase understanding of fear and explore the negative impact fear of failure can have on mental health and decision making. Client Response/Progress/Benefit:: Pt was an active participant in group activity and discussion. Participated with group in discussion on definitions of failure. She worked with the group during activity and processed the activity with group pointing out how learning from setbacks, missteps, and failures during the activity helped them accomplish their goals. Shared the top thing that she was able to take from the group was we have to learn from our failures or setbacks. Progress noted through increased awareness and education on how fear of failure impacts mental wellness. Able to identify that avoiding fear altogether is unrealistic. Also able to identify how failure can be beneficial. Eye Contact:: Good Motor Activity:: Appropriate Appearance:: Casual Speech:: Appropriate Mood:: Anxious Affect:: Congruent Thoughts:: Linear, Logical, No evidence of hallucinations/delusions noted Staff Interventions:: Therapist facilitated discussion about fear and impact fear of failure can have. Therapist led group in an experiential activity in which client?s would fail numerous times throughout, but were given the opportunity to try again. Therapist led the processing of the activity and assisted clients with connecting how fear of failure impacted their decision making during the activity.
--- NOTE | 2017-07-30 15:52 | BH.MDN ---
Multi-Disciplinary Note - Note 30-min Individual Time Started:: 11:41 Date: 07/30/17 Time Stopped:: 12:14
--- NOTE | 2017-07-30 15:54 | BH.SGPN ---
Service Group Progress Note - Session Psychotherapy Session #1 Date Open:: 07/30/17 Time Started:: 09:08 Time Stopped:: 10:09 Targeted Problem #:: 1 Type of Group:: Process - 7 participants Goal of Group:: The goal of group was to check-in with clients on current mood, stressors, and positives and from previous group session. Client Response/Progress/Benefit:: Client actively participated in session and did well to openly share current thoughts and feelings with the group. She shared being calm today but somewhat tired as she has been worring about what she plans to do regarding a situation related to her daughter wanting to stop visiting with her paternal grandmother. Client discussed knowing that she would like to more forward with legally ending the visitation rights but is struggling with avoidance of the situation. Client benefited from taking time to process her options with the group and was receptive of encouragement offered. Client recommended continued IOP to further improve consistent use of internal coping and regulation skills as well as effective communication strategies. Eye Contact:: Good Motor Activity:: Appropriate Appearance:: Casual Speech:: Appropriate Mood:: Euthymic Affect:: Full, Bright Thoughts:: Linear, Logical, No evidence of hallucinations/delusions noted Staff Interventions:: Therapist used open-ended questions to elicit information about client's current stressors and mood state. Therapist was supportive by using active listening and reflection. Therapist utilized a quote to introduce the topic of the day.
--- NOTE | 2017-08-05 12:20 | BH.SGPN ---
Service Group Progress Note - Session Psychotherapy Session #1 Date Open:: 08/05/17 Time Started:: 09:10 Time Stopped:: 10:00 Type of Group:: Process - 5 group members Goal of Group:: The goal of today's group was to check-in with client's mood, stressors, and positives, review homework and introduce topic for the day. Client Response/Progress/Benefit:: Pt was quiet a majority of the group however did speak when prompted. Emotion for today is frustrated. Shared with the group several frustrations and irritability over recent court rulings. Vented frustrations and percieved obstacles however is able to identify ways to mange disappointment in a healthy way. Also able to identify feelings of powerlessness and lack of control over several aspects of her current life regarding custody challenges. Group provided support which pt benefited from. Progress noted as she is managing emotions related to obstacles and trying to problem solve. Will continue in IOP to stabilize mood, maintain gains, and prevent decompensation. Eye Contact:: Fair Motor Activity:: Restless Appearance:: Casual Speech:: Appropriate Mood:: Irritable, Depressed Affect:: Congruent Thoughts:: Linear, Logical, No evidence of hallucinations/delusions noted Staff Interventions:: Therapist used open-ended questions to elicit information about client's current stressors and mood state. Therapist was supportive by using active listening and reflection.
--- NOTE | 2017-08-05 15:08 | BH.SGPN_ITS ---
Service Group Progress Note - Session Psychotherapy Session #2 Date Open:: 08/05/17 - 6 group members Time Started:: 10:07 Time Stopped:: 11:06 Targeted Problem #:: 1 Type of Group:: Illness Management Goal of Group:: To increase understanding of components of a problem, learn strategies to solve a problem and rehearse problem solving skills. Client Response/Progress/Benefit:: Client responded somewhat well to session, less engaged than previous session, appearing withdrawn. Client nodded to peers ? comments about the quote. Client helped the group process problem-solving strategies, such as the ABCDEs of problem solving. Client shared it is helpful to recognize who can help solve the problem, so one does not have to do it alone. Client participated in an activity aimed to help group members utilize in the moment problem solving skills. Client reported at times the activity was difficult because she felt frustrated and stressed. Client appeared to benefit from learning how to more effectively solve problems. Progress noted in client? s generalization of healthy coping skills, but can continue to benefit from emotional regulation. Eye Contact:: Fair Motor Activity:: Appropriate Appearance:: Casual Speech:: Appropriate Mood:: Irritable, Depressed Affect:: Constricted Thoughts:: Linear, No evidence of hallucinations/delusions noted Staff Interventions:: Therapist facilitated group discussion about problems and the underlying components of problems. Therapist educated group about various strategies to solving a problem and provided an example of each. Therapist led group in an experiential activity that required group members to use problem solving skills to work together, rehearsing problem solving skills. Psychotherapy Session #3 Date Open:: 08/05/17 - 6 group members Time Started:: 11:10 Time Stopped:: 12:05 Targeted Problem #:: 1 Type of Group:: Functional Skills Development Goal of Group:: To identify steps to solving a personal problem and increase awareness to those barriers that impedes the problem solving process. Client Response/Progress/Benefit:: Client responded well to session, active participant. Client identified ?negative self-talk? as problem she wants to solve. Client shared she plans to work towards her goal of using more positive self-talk by recognizing when she is being negative, challenging cognitive distortions, writing down reframed thoughts, and identifying positive traits. Client reported her barriers are ?I think worst case? and overanalyzing. Client appeared to benefit from problem-solving strategies to increase confidence and overcome barriers. Client to continue IOP to increase emotional regulation and increase coping skill consistency. Eye Contact:: Fair Motor Activity:: Appropriate Appearance:: Casual Speech:: Appropriate Mood:: Irritable Affect:: Congruent Thoughts:: Linear, No evidence of hallucinations/delusions noted Staff Interventions:: Therapist provided group members with a worksheet in which the group members were instructed to identify a problem and steps need to take to solve that problem. Then therapist instructed group members to identify those barriers that get in the way of solving the problem. Therapist led the processing of the activity. Therapist provided support by using active listening and providing feedback.
--- NOTE | 2017-08-07 10:49 | BH.SGPN ---
Service Group Progress Note - Session Psychotherapy Session #1 Date Open:: 08/07/17 Time Started:: 09:09 Time Stopped:: 10:15 Targeted Problem #:: 1 Type of Group:: Process - 4 participants Goal of Group:: The goal of today's group was to check-in with client's mood, stressors, and positives, review homework. Client Response/Progress/Benefit:: Client responded well to session and remained actively engaged throughout. Client indicated feeling positive but concerned today as she has both good and bad news. She went on to share that she had begun the adoption process for her daughter. Client expressed that this relieved a lot of anxiety about losing her daughter. Client reflected upon feeling as though everything's finally starting to fall in place and discussed that the adoption would also remove additionaly toxic relationships frome she and her daughter's lives. Client indicated that she woke up feeling like a different person due to the amount of relief she is experience. Client went on to share that although she was excited about this news she is also struggling to maintain these positive emotions. Client indicated that she just recieved news her mitchell is in a psychiatric hospital. Client discussed that she had to tell her brother she would not be able to have her nerosaline come live with her for the summer but would be more than willing to provide emotional support. She indicated that setting this boundary was hard but necessary. Client benefited from reflecting with the group upon the skills she used throughout these experiences and is making progress in ability to challenge distortions. Client recommended continued IOP tx to further improve consistent use of coping strategies. Eye Contact:: Good Motor Activity:: Appropriate Appearance:: Casual Speech:: Appropriate Mood:: Euthymic Affect:: Full Thoughts:: Linear, Logical, No evidence of hallucinations/delusions noted Staff Interventions:: Therapist used open-ended questions to elicit information about client's current stressors and mood state. Therapist reviewed homework assigned from previous groups. Therapist was supportive by using active listening and reflection.
--- NOTE | 2017-08-07 14:29 | BH.SGPN_ITS ---
Service Group Progress Note - Session Psychotherapy Session #2 Date Open:: 08/07/17 - 3 group members Time Started:: 10:20 Time Stopped:: 11:12 Targeted Problem #:: 1 Type of Group:: Illness Management Goal of Group:: To increase understanding of what conflict is and increase awareness of how group members manage conflict. Client Response/Progress/Benefit:: Client responded well to session, active participant. Client connected with the quote stating, ?peace does not come from avoiding conflict, you have to deal with it.? Client shared high emotions, negative thinking, and body language can all impact one?s ability to manage conflict. Client helped the group identify and process various conflict starters as well as the four conflict resolution styles. Client reported she tends to be the accommodating type sharing ?I often put others? needs before my own, if they are happy I?m happy.? Client recognized this has negatively impacted her mental health as she does not get her needs met and becomes overwhelmed as client ?wants to please everybody.? However, client reported she has learned to be more assertive and has set boundaries which is progress. Client appeared to benefit from learning the different conflict resolution styles and how they impact mental health. Progress noted in client's improved boundary setting and emotional awareness, but can continue to benefit from mood stability. Eye Contact:: Good Motor Activity:: Appropriate Appearance:: Neat Speech:: Appropriate Mood:: Euthymic Affect:: Congruent Thoughts:: Linear, No evidence of hallucinations/delusions noted Staff Interventions:: Therapist facilitated discussion about conflict and conflict resolution. Therapist led group in an activity in which group members had to identify their initial response to conflict and how their response changes based on different situations. Therapist assisted clients with connecting the impact current conflict style has on their mental health. Psychotherapy Session #3 Date Open:: 08/07/17 - 3 group members Time Started:: 11:20 Time Stopped:: 12:15 Targeted Problem #:: 1 Type of Group:: Functional Skills Development Goal of Group:: To identify what contributes positively and negatively to conflict and appropriate ways to manage conflict with others. Client Response/Progress/Benefit:: Client responded well to session, active participant. Client recognized that during the activity she wanted to be accommodating to others rather than advocating for herself, but with therapist? s gentle challenging, client able to be more assertive and get her thoughts heard. Client helped the group identify strategies to manage conflict more effectively such as managing strong emotions, having high awareness of emotional attachment, and ?attack the problem not the person.? Client appeared to benefit from learning conflict resolution strategies. Client to continue IOP to promote gains and increase emotional regulation. Eye Contact:: Good Motor Activity:: Appropriate Appearance:: Neat Speech:: Appropriate Mood:: Euthymic Affect:: Constricted Thoughts:: Linear, No evidence of hallucinations/delusions noted Staff Interventions:: Therapist facilitated group activity in which group members were provided with materials and had to eliminate certain items with consensus from group. Therapist processed activity, helping clients connect throughout activity strategies each person used to manage conflict. Therapist led discussion about what contributes to conflict in a positive or negative manner. Therapist facilitated discussion about conflict resolution strategies and provided group member with a handout about effective ways to manage conflict.
--- NOTE | 2017-08-08 14:31 | BH.SGPN ---
Service Group Progress Note - Session Psychotherapy Session #2 Date Open:: 08/08/17 Time Started:: 10:30 Time Stopped:: 11:20 Targeted Problem #:: 1 Type of Group:: Illness Management Goal of Group:: The goal of this session was to increase self-awareness of what is holding them back from moving towards mental wellness and discuss importance of taking action in their treatment. Staff Interventions:: Therapist facilitated discussion about what it means to take action in achieving mental health wellness. Therapist led activity in which clients were asked to identify the symptoms and things that they would like to take back control over. Therapist provided support by using active listening.
--- NOTE | 2017-08-21 13:47 | BH.MDN_ITS ---
Multi-Disciplinary Note - Note 30-min Individual Time Started:: 12:32 Date: 08/05/17 Purpose of session/treatment goals addressed:: The purpose of this session was to check-in with Client regrarding current treatment goal progress, symptom management, and ability to regulate emotions. Another purpose was to evaluate thought challenge strategies that CLient uses and review what strategies are working and what is not, as well as further identify internal coping strategies to continue implementing. Eye Contact:: Good Motor Activity:: Appropriate Appearance:: Casual Speech:: Appropriate Mood:: Anxious, Irritable Affect:: Congruent Thoughts:: Linear, Logical, No evidence of hallucinations/delusions noted Staff Interventions:: Therapist asked open-ended and clarifying questions to gather additional information regarding client current symptoms, stress management, use of healthy coping skills, and treatment goal progress. Used reflective listening and empathic responses as Client discussed current psychosocial stressors and frustrations. Worked with CLient evaluate and review thought challenging strategies as well as provide additional psychoeducation regarding internal coping mechanisms. Client Response:: Client open to meeting with this therapist and responded well to topics discussed. Client shared struggling to manage the influx in recent stressors the past few days. She discussed recently meeting with her civil attorney to discuss remoivng the visitation rights from her daughter's paternal grandmother however was not given the advice that she had hoped for. Client vented her frustrations with this therapist and shared taking the initiative to find another civil attorney who may better be able to help. SHe shared feeling most upset and frustrated by the situation because she does not want her daughter to have to suffer while everything is still being figured out. Client disclosed plans to withhold the visistation despite it being granted by the court and indicated a willingness to endure the legal reprecussions that may result. Client went on to discuss plannig to also meet with her daughter's biological mother in order to ask to be granted adoption rights. She shared feeling nervous about doing so and indicated struggle to fight negative thinking as she manages everything. CLient did well to work with this therapist on identifying what strategies best help client challenge negative thoughts and what do not. She reported that reframing feels uncomfortable and alittle phony to her as it does not change the situation. Client expressed that asking herself does my emotion fit the situation and is my reaction appropriate has been much more beneficial. Client went on to explain that this allows her to further break things down and process why she is feeling what she is. CLient identified often doing so in a journal and then processing with her fiance. She is able to identify the importance of consistently applying thought challenging strategies for managing and regulating emotions. She worked with therapist on identifying other potentially effective internal coping mechanisms and notes grounding as benefical. Risks/Concerns:: No risks or concerns at this time. Client denies any suicidal ideation, plan, or intent. She is future oriented indicating plans to contact her daughter's biological mother in order to attain the adoption rights for her daughter. Client identifies her fiance and daughter as main motivations to live. She is aware of crisis resources available and willing to reach out should she feel unable to maintian safety. Progress Toward Goals/Plan:: Client displaying progress in treatment. She is doing well to apply the skills learned in IOP program and regularly checks in with self regarding potential warning signs and sx. Client is increasing her ability to manage stress and regulate emotions without responding on impulse however struggles with consistincy. She indicates most difficulty in remaining patient with her daughter but shares that continuing to try to challenge negative thinking patterns and check in with her fiance on whether or not her thoughts are realistic is helping to improve patience levels. Recommended continued IOP to further improve thought challenging skills and emotion regulation as well as prevent decompensation. Time Stopped:: 13:08
--- NOTE | 2017-09-24 14:31 | BH.SGPN_ITS ---
Service Group Progress Note - Session Psychotherapy Session #2 Date Open:: 07/31/17 Time Started:: 10:18 Time Stopped:: 11:15 Targeted Problem #:: 1 Type of Group:: Illness Management Goal of Group:: The goal of group was to increase understanding of goals and goal setting and practice a method of goal setting. Client Response/Progress/Benefit:: Pt contributed to discussion and listened attentively to others. Pt reported she sets many goals, but struggles with accomplishing the goals due to the goals sometimes being unrealistic. Pt shared she also doesn't give herself enough time to accomplish a goal which makes it difficult to be successful. Pt seemed to benefit from learning about setting SMART goals and rehearsing set small goals. Eye Contact:: Good Motor Activity:: Appropriate Appearance:: Casual Speech:: Appropriate Mood:: Euthymic Affect:: Congruent Thoughts:: Linear, Logical, No evidence of hallucinations/delusions noted Staff Interventions:: Therapist facilitated group discussion about goals and goal setting. Therapist taught group the acronym SMART (Specific, Measurable, Achievable, Realistic, Timely) as a tool to help with goal setting. Therapist led the group in an activity to be used as a method of practicing goal setting. Therapist guided the group through the SMART acronym as group was participating in activity. Therapist assisted group members with connecting the importance of making small, realistic goals. Psychotherapy Session #3 Date Open:: 07/31/17 Time Started:: 11:25 Time Stopped:: 12:15 Targeted Problem #:: 1 Type of Group:: Functional Skills Development Goal of Group:: The goal of group was to identify a goal for the weekend, explore the potential barriers to achieving that set goal, and identify strategies to overcome barriers. Client Response/Progress/Benefit:: Pt engaged and active throughout session, contributed to discussion and listened to others. Pt identified her SMART goal is to pick a book and read it. Pt reported this goal will be beneficial because she wants to get back into doing the things she used to enjoy. Pt identified potential setbacks could be: not using time wisely and not having enough time. Pt reported she could overcome these setbacks by putting her reading time into her schedule. Pt seemed to benefit from creating a small goal with specific steps that will help her be successful. Eye Contact:: Good Motor Activity:: Appropriate Appearance:: Casual Speech:: Appropriate Mood:: Euthymic Affect:: Congruent Thoughts:: Linear, Logical, No evidence of hallucinations/delusions noted Staff Interventions:: Therapist facilitated group activity in which group members identified a goal to work on over the next week. Therapist asked group members to identify barriers to achieving identified goal and strategies to help them achieve their goal. Therapist led group in processing their goal maps , assisting clients with establishing SMART goals. Therapist provided support by using reflective listening.
== END 2017-08-11 23:59 ==
LOC: BHIOP 09:00
PROVIDERS: Visit Provider Psychiatry & Neurology Psychiatry
DX: F31.81 Bipolar II disorder (principal); F41.9 Anxiety disorder, unspecified; F43.10 Post-traumatic stress disorder, unspecified; F11.20 Opioid dependence, uncomplicated; F12.20 Cannabis dependence, uncomplicated; Z79.899 Other long term (current) drug therapy
CPT/HCPCS: 90833; 99214; H0035; H2012; H2020; 90832; 90834; 90837; 90847

== ENCOUNTER 2017-08-12 09:00 | Outpatient (RCR) | payer MEDICAID, SELFPAY ==
[2017-08-12 00:59] VITALS: PULSE 74; RESP 14
--- NOTE | 2017-08-12 10:32 | BH.SGPN_ITS ---
Service Group Progress Note - Session Psychotherapy Session #1 Date Open:: 08/12/17 - 6 group members Time Started:: 09:05 Time Stopped:: 10:05 Targeted Problem #:: 1 Type of Group:: Process Goal of Group:: The goal of today's group was to check-in with client's mood, stressors, and positives, review homework and introduce topic for the day. Client Response/Progress/Benefit:: Client responded well to session, providing supportive statements to peers. Client reports feeling energetic and maybe a little manic today. Client shared she has a plan established to help client cope and manage len to prevent a crash. Client stated she had some stressors yesterday as client's daughter's grandmother found out her grandparent rights were to be taken away and called the registration scheduling specialist for a welfare check on client, the police had to search client's house. Client shared I was able to cope because I just reminded myself I did nothing wrong. Client reported she will have to go to court to face her daughter's grandmother tomorrow over emergency visitation. Client stated, I will do what I have to do to protect my daughter even [place] it [place] Therapist gently challenged client on the pros and cons of this choice, which client replied the pros will outweigh the cons. Client appeared to benefit from increasing awareness of healthy versus unhealthy coping skills. Progress noted in client's improved ability to challenge negative thoughts, but can continue to benefit from anger management. Eye Contact:: Good Motor Activity:: Appropriate Appearance:: Neat Speech:: Rapid Mood:: Euthymic - reporting potential len Affect:: Full Thoughts:: Linear, No evidence of hallucinations/delusions noted Staff Interventions:: Therapist used open-ended questions to elicit information about client's current stressors and mood state. Therapist was supportive by using active listening and reflection.
--- NOTE | 2017-08-14 09:52 | BH.SGPN ---
Service Group Progress Note - Session Psychotherapy Session #1 Date Open:: 08/14/17 Time Started:: 09:10 Time Stopped:: 10:00 Type of Group:: Process - 6 group members Goal of Group:: The goal of today's group was to check-in with client's mood, stressors, and positives, and review homework. Behaviors/Verbalizations/Mental Status:: Active participant in group activity and discussion. Emotion for today was tired but happy. Shared with the group several stressors related to recent court hearings. This continues to be a primary stressor for patient. Reports emotional rollercoaster related to court issues as she will get some positive news which is then followed by devastating news. Admits to some difficutly managing her emotions however reports that she feels that support and IOP have helped. Group provided support which pt benefited from. Will continue in IOP to prevent decompensation, provides support, and maintain gains. Eye Contact:: Fair Motor Activity:: Restless Appearance:: Casual Speech:: Appropriate Mood:: Anxious, Irritable, Depressed Affect:: Congruent Thoughts:: Linear, Logical, No evidence of hallucinations/delusions noted Staff Interventions:: Therapist used open-ended questions to elicit information about client's current stressors and mood state. Therapist was supportive by using active listening and reflection. Psychotherapy Session #2 Date Open:: 08/14/17 Time Started:: 10:20 Time Stopped:: 11:10 Type of Group:: Illness Management - 7 group members Goal of Group:: To increase understanding and awareness of emotions connected to change and the impact those emotions can have on change. Client Response/Progress/Benefit:: Active participant in group activity and discussion. Worked with peers to identify common emotions related to change which include; panic, anxiety, lost, torn, curious, enthusiatic, and anger. According to pt change is a big thing in my life and I can't avoid it ... Change causes stress and I'm scared if its going to work. Benefited from education and awareness on emotions related to change and the process or stages of change. Eye Contact:: Fair Motor Activity:: Restless Appearance:: Casual Speech:: Appropriate Mood:: Anxious, Depressed Affect:: Congruent Thoughts:: Linear, Logical, No evidence of hallucinations/delusions noted Staff Interventions:: Therapist facilitated group discussion about change. Therapist led the group in an activity in which the activity was utilized as a tool to increase clients awareness of emotions connected with change. Therapist led the processing of how each emotion was associated with change. Therapist also educated clients on the stages of change and discussed emotions associated with each stage. Therapist was supportive by providing feedback and using reflective listening.
--- NOTE | 2017-08-14 16:48 | BH.SGPN ---
Service Group Progress Note - Session Psychotherapy Session #3 Date Open:: 08/14/17 Time Started:: 11:23 Time Stopped:: 12:20 Targeted Problem #:: 1 Type of Group:: Functional Skills Development - 6 participants Goal of Group:: To identify the challenges associated with making change and identify positive outcomes that have resulted from changes made in past. Another goal was to identify one change they are willing to make this week. Eye Contact:: Good Motor Activity:: Appropriate, Restless Appearance:: Neat, Casual Speech:: Appropriate Mood:: Euthymic Affect:: Congruent Thoughts:: Linear, Logical, No evidence of hallucinations/delusions noted Staff Interventions:: Therapist led group in an activity to help group members recognize the challenges associated with change. Therapist utilized activity as a tool to identify ways to manage changes and adapt to the challenges that ensue. Therapist facilitated group discussion about positive outcomes from change. Therapist helped clients explore changes they are willing to make this week and elicited discussion on the pros and cons of making that change.
--- NOTE | 2017-08-15 09:56 | BH.SGPN_ITS ---
Service Group Progress Note - Session Psychotherapy Session #1 Date Open:: 08/14/17 Time Started:: 09:10 Time Stopped:: 10:00 Type of Group:: Process - 6 group members Goal of Group:: The goal of today's group was to check-in with client's mood, stressors, and positives, and review homework. Behaviors/Verbalizations/Mental Status:: Active participant in group activity and discussion. Emotion for today was tired but happy. Shared with the group several stressors related to recent court hearings. This continues to be a primary stressor for patient. Reports emotional rollercoaster related to court issues as she will get some positive news which is then followed by devastating news. Admits to some difficutly managing her emotions however reports that she feels that support and IOP have helped. Group provided support which pt benefited from. Will continue in IOP to prevent decompensation, provides support , and maintain gains. Eye Contact:: Fair Motor Activity:: Restless Appearance:: Casual Speech:: Appropriate Mood:: Anxious, Irritable, Depressed Affect:: Congruent Thoughts:: Linear, Logical, No evidence of hallucinations/delusions noted Staff Interventions:: Therapist used open-ended questions to elicit information about client's current stressors and mood state. Therapist was supportive by using active listening and reflection. Psychotherapy Session #2 Date Open:: 08/14/17 Time Started:: 10:20 Time Stopped:: 11:10 Type of Group:: Illness Management - 7 group members Goal of Group:: To increase understanding and awareness of emotions connected to change and the impact those emotions can have on change. Client Response/Progress/Benefit:: Active participant in group activity and discussion. Worked with peers to identify common emotions related to change which include; panic, anxiety, lost, torn, curious, enthusiatic, and anger. According to pt change is a big thing in my life and I can't avoid it ... Change causes stress and I'm scared if its going to work. Benefited from education and awareness on emotions related to change and the process or stages of change. Eye Contact:: Fair Motor Activity:: Restless Appearance:: Casual Speech:: Appropriate Mood:: Anxious, Depressed Affect:: Congruent Thoughts:: Linear, Logical, No evidence of hallucinations/delusions noted Staff Interventions:: Therapist facilitated group discussion about change. Therapist led the group in an activity in which the activity was utilized as a tool to increase client?s awareness of emotions connected with change. Therapist led the processing of how each emotion was associated with change. Therapist also educated clients on the stages of change and discussed emotions associated with each stage. Therapist was supportive by providing feedback and using reflective listening.
--- NOTE | 2017-08-15 09:57 | BH.COMM ---
Communication Note - Communication with Client Communication Note: Client scheduled for IOP group and individual session on this date; however, did not show for scheduled appointment. Therapist attempted to contact Client but was unable to reach her. Due to Client mailbox being full a message was unable to be left. Will attempt to contact again this afternoon.
--- NOTE | 2017-08-15 16:25 | BH.COMM ---
Communication Note - Communication with Client Communication Note: Therapist again attempted to contact client to reschedule appt. Client unable to be reached anf Client's emergency contact did not answer when therapit attempted to contact. A message was left encouraging Client return this call. Client does not appear to be at risk AEB client denying any suicidal ideation, plan, or intent on previous date and was future riented indicating plans to attend group today and spend time with her daughter. Therapist will attempt to follow-up with CLient on Friday.
--- NOTE | 2017-08-18 10:58 | BH.COMM ---
Communication Note - Communication with Client Communication Note: Therapist contacted Client to follow-upo as Client had no showed last appointment. Client indicated that she had recieved some disappointing news from her district attorney on evening which resulted in her isolating and sleeping for the majority of Friday. Client identified that this had been an uinhealthy and unhelpful means of coping. She expressed that near the end of the day she had been able to communicate with her fiance, process her emotions, and then reflect upon what was in her control to do. CLient noted that reminding herself to reframe her thoughts has been most helpful in maintaining stability. She is scheduled to attend IOP program tomorrow, 08/19, and indicated wanting this to be her final day in the program as she feels confient in maintaining counseling on a weekly outpatient basis. Given client progress, symptom reduction, and ongoing stability therapist in agreement with discharge date.
--- NOTE | 2017-08-18 11:08 | BH.COMM_ITS ---
Communication Note - Communication with Client Communication Note: Therapist contacted Client to follow-upo as Client had no showed last appointment. Client indicated that she had recieved some disappointing news from her real estate attorney on evening which resulted in her isolating and sleeping for the majority of Friday. Client identified that this had been an uinhealthy and unhelpful means of coping. She expressed that near the end of the day she had been able to communicate with her fiance, process her emotions, and then reflect upon what was in her control to do. CLient noted that reminding herself to reframe her thoughts has been most helpful in maintaining stability. She is scheduled to attend IOP program tomorrow, 08/19, and indicated wanting this to be her final day in the program as she feels confient in maintaining counseling on a weekly outpatient basis. Given client progress, symptom reduction, and ongoing stability therapist in agreement with discharge date.
--- NOTE | 2017-08-19 15:55 | BH.COMM ---
Communication Note - Communication with Client Communication Note: Client schedule for discharge from [facility] on this date however did not attend appointment and did not call to cancel. Therapist attempted to reach client this morning and later in the afternoon to follow-up; however, client unable to be reached. Client currently not at risk to self or others. Therapsit will follow-up
--- NOTE | 2017-08-20 14:58 | BH.COMM ---
Communication Note - Communication with Client Communication Note: Therapist spoke with Client to reschedule discharge date and follow-up with recent missed appointments. Client indicated unanticipated complications regarding gaining the adoptive rights to her daughter and has been managing that for the past few days. She shared experiencing guilt that she has missed the last two appointments but plans to come in for discharge tomorrow. Client additionally indicates that she has been out of her Lamictol for the past four days and is requesting a new script. Program nurse to follow-up with this tomorrow.
--- NOTE | 2017-08-20 15:04 | BH.COMM_ITS ---
Communication Note - Communication with Client Communication Note: Therapist spoke with Client to reschedule discharge date and follow-up with recent missed appointments. Client indicated unanticipated complications regarding gaining the adoptive rights to her daughter and has been managing that for the past few days. She shared experiencing guilt that she has missed the last two appointments but plans to come in for discharge tomorrow. Client additionally indicates that she has been out of her Lamictol for the past four days and is requesting a new script. Program nurse to follow- up with this tomorrow.
--- NOTE | 2017-08-20 22:57 | BH.AFTERPLAN ---
Aftercare Plan - Demographics Treatment End Date:: 08/19/17 Psychiatrist:: Phylicia Pal Psychiatrist Office #:: [phone] [facility] Therapist:: April Arceo Therapist Phone #:: [phone] - Medications Home Medications: Home Medications Cyclobenzaprine [Flexeril] 10 mg PO TID PRN #20 tablet 12/09/16 Naproxen [Naprosyn] 500 mg PO BID PRN #20 tablet 12/09/16 Lamotrigine [Lamictal] 75 mg PO DAILY 07/25/17 - Plan Details Progress/Aftercare Plan Details:: Since admission to the [facility] program, Client has demonstrated consistent progress with managing her mental health symptoms. She has displayed an improved ability to identify and communicate her emotions more regularly both in the treatment setting and with supports in her daily life. Client indicates a reduction in overall frequency, intensity, and duration of mood swings; and, attributes this to an improved ability to recognize the warning signs and triggers associated with mood dysregulation. She additionally reports that increasing regular communication with supports and implementation of healthy coping skills has aided Client in ongoing progress. Client coping skills include challenging negative thoughts, allowing herself time to experience and process her emotions without reacting, setting small goals, and consistently communicating her needs. Client has successfully completed assigned tx goals and notes an ability to maintain baseline functioning through involvement in outpatient psychiatry and counseling services. She was able to engage in a couple's counseling session while in [facility] and identifies this as beneficial. Client ill follow up with outpatient psychiatrist and counselor. Strategies for Success:: 1. Pay attention to how your thoughts are impacting your mood and the messages you are telling yourself! -- Who are you allowing to be in control of your emotions? 2. set small goals! Focus on one thing at a time! It's okay to slow down, progress is still progress no matter how quickly it occurs. 2. Reach out and communicate with supports! Even when you don't feel like it. Even when it's hard. Even when you feel like you've let them down. They are your supports for a reason and they want to help you to succeed. 3. BREATHE! Take breaks! Give yourself time to PUMP THE BREAKS in your brain and process what is going on before reacting. 5. Keep paying attention your warning signs and limits and COMMUNICATE these with your supports. 6. SELF-CARE! You can't pour from an empty cup. 7. Challenge negative thoughts and this about how else you could view the situation. 8. Give yourself credit, even for small tasks! Own your wins! 9. Focus on what you've progressed on so far and what great example you are creating for Dana. - Appointments Appointments/Referrals to Other Services:: Client encouraged to follow up with psychiatry and outpatient counselling through [facility]. Client is currently established with Cande Lang for individual therapy and Owen Martinez CNP for ongoing medication management. Client additionally given resources for [facility] for additional counseling resources per Client request. Client reports plans to begin attending [facility] for the ongoing social support.
--- NOTE | 2017-08-21 13:10 | BH.DS ---
Discharge Summary - Demographics Date of Admission:: 07/02/17 Discharge Date: 08/19/17 Presenting Problems at Admission:: Client is a 26 year-old, engaged female who presented to the [facility] with chief complaint of rapid mood cycling. At time of admission, Client reported symptoms significant to hypomania, indicating decreased sleep, increased energy, lowery theft, increased lying, irritability, and difficulty with focus. Client reports these hypomanic episodes usually are followed by increased symptoms of depression and passive thoughts of . She identifies several psychosocial stressors including a custody armando, relationship tension due to increased lying, onging divorce, legal issues associated with ex-, and financial difficulties. Client reports a long-standing history of mood symptoms and significant trauma history, including intrusive traumatic memories, avoidance and hypervigilance consistent with PTSD. Client additionally indicates current use of Suboxone. Discharge Diagnoses:: Bipolar 2 disorder of 31.81. Anxiety unspecified. PTSD. Opiate use disorder. Cannabis use disorder Reason for Discharge:: Client has successfully met treatment goals and no longer meets requirements for [facility] level of care. Client is planning to follow-up with on-going outpatient individual counseling services and medication management. Client scheduled to attend IOP program on 08/19/17 to complete discharge paperwork; however, did not show for scheduled appointment and discharge paperwork was unable to be completed. - Treatment Progress During Treatment & Response: Since admission to the [facility] program, Client has demonstrated consistent progress with managing her mental health symptoms. She has displayed an improved ability to identify and communicate her emotions more regularly both in the treatment setting and with supports in her daily life. Client indicates a reduction in overall frequency, intensity, and duration of mood swings; and, attributes this to an improved ability to recognize the warning signs and triggers associated with mood dysregulation. She additionally reports that increasing regular communication with supports and implementation of healthy coping skills has aided Client in ongoing progress. Client coping skills include challenging negative thoughts, allowing herself time to experience and process her emotions without reacting, setting small goals, and consistently communicating her needs. Client has successfully completed assigned tx goals and notes an ability to maintain baseline functioning through involvement in outpatient psychiatry and counseling services. She was able to engage in a couple's counseling session while in [facility] and identifies this as beneficial. Client ill follow up with outpatient psychiatrist and counselor. Issues Still to be Addressed:: Client endorses continued difficulties with mood regulation, specifically irritability during times of increased stress. She also began to struggle with attendance near end of program admission and indicated that this was due to isolating after receiving difficult news. Client displays increased levels of insight regarding the impact these behaviors have had on her mental health and ability to maintain progress. She would benefit from continued individual counseling services focusing on maintaining healthy balance and appropriate boundaries, increasing consistency of healthy coping skills and thought challenging in daily life, as well as utilizing healthy stress management skills. Discharge Recommendations/Instructions:: Client encouraged to follow up with psychiatry and outpatient counselling through [facility]. Client is currently established with Cande Lang for individual therapy and Owen Martinez CNP for ongoing medication management. Client additionally given resources for [facility] for additional counseling resources per Client request. Client reports plans to begin attending [facility] for the ongoing social support. Discharge Handout: Complete Discharge Handout with client on aftercare options and continuity of care.
--- NOTE | 2017-08-21 13:10 | BH.IGGP_ITS ---
Aftercare Plan - Demographics Treatment End Date:: 08/19/17 Psychiatrist:: Phylicia Pal Psychiatrist Office #:: [phone] [facility] Therapist:: April Arceo Therapist Phone #:: [phone] - Medications Home Medications: Home Medications Cyclobenzaprine [Flexeril] 10 mg PO TID PRN #20 tablet 12/09/16 Naproxen [Naprosyn] 500 mg PO BID PRN #20 tablet 12/09/16 Lamotrigine [Lamictal] 75 mg PO DAILY 07/25/17 - Plan Details Progress/Aftercare Plan Details:: Since admission to the [facility] program, Client has demonstrated consistent progress with managing her mental health symptoms. She has displayed an improved ability to identify and communicate her emotions more regularly both in the treatment setting and with supports in her daily life. Client indicates a reduction in overall frequency, intensity, and duration of mood swings; and, attributes this to an improved ability to recognize the warning signs and triggers associated with mood dysregulation. She additionally reports that increasing regular communication with supports and implementation of healthy coping skills has aided Client in ongoing progress. Client coping skills include challenging negative thoughts, allowing herself time to experience and process her emotions without reacting, setting small goals, and consistently communicating her needs. Client has successfully completed assigned tx goals and notes an ability to maintain baseline functioning through involvement in outpatient psychiatry and counseling services. She was able to engage in a couple's counseling session while in [facility] and identifies this as beneficial. Client ill follow up with outpatient psychiatrist and counselor. Strategies for Success:: 1. Pay attention to how your thoughts are impacting your mood and the messages you are telling yourself! -- Who are you allowing to be in control of your emotions? 2. set small goals! Focus on one thing at a time ! It's okay to slow down, progress is still progress no matter how quickly it occurs. 2. Reach out and communicate with supports! Even when you don't feel like it. Even when it's hard. Even when you feel like you've let them down. They are your supports for a reason and they want to help you to succeed. 3. BREATHE! Take breaks! Give yourself time to PUMP THE BREAKS in your brain and process what is going on before reacting. 5. Keep paying attention your warning signs and limits and COMMUNICATE these with your supports. 6. SELF-CARE! You can 't pour from an empty cup. 7. Challenge negative thoughts and this about how else you could view the situation. 8. Give yourself credit, even for small tasks ! Own your wins! 9. Focus on what you've progressed on so far and what great example you are creating for Dana. - Appointments Appointments/Referrals to Other Services:: Client encouraged to follow up with psychiatry and outpatient counselling through [facility]. Client is currently established with Cande Lang for individual therapy and Owen Martinez CNP for ongoing medication management. Client additionally given resources for [email or web address] for additional counseling resources per Client request. Client reports plans to begin attending [facility] for the ongoing social support.
--- NOTE | 2017-08-21 14:40 | BH.NOTE ---
BH: Inpatient Note - Notes Behavioral Health Inpatient Note: Per T.O. from Dr. Pal, this RN called in refill of Lamictal 75mg PO daily #30 and 2 refills to client's pharmacy [facility] in [place]. Frances Melvin, RN, BSN
--- NOTE | 2017-08-21 14:58 | BH.SGPN_ITS ---
Service Group Progress Note - Session Psychotherapy Session #2 Date Open:: 08/21/17 - 6 group members Time Started:: 10:23 Time Stopped:: 11:20 Targeted Problem #:: 1 Type of Group:: Illness Management Goal of Group:: To identify within self what is keeping client trapped from achieving better quality of life. Client Response/Progress/Benefit:: Client responded well to session, quiet, but participating when prompted. Client appeared to connect with the quote sharing ?my kwan were once very negative? and kept client from making progress and healing from past trauma. Client shared that trauma, anxiety, and low self- esteem can keep people stuck. Client discussed that one?s thoughts are what truly keeps people stuck. Client identified some of the negative thoughts that keep client stuck in a negative maintenance cycle are ?nothing is getting better, I?m not making progress, and I?m not good at anything.? Client recognized that when she thinks this way she has increased depression and anxiety and lower self-esteem. Client appeared to benefit from increasing awareness of how negative thoughts keep client stuck. Progress noted in client?s improved mood and generalization of coping skills. Eye Contact:: Good Motor Activity:: Appropriate Appearance:: Neat Speech:: Appropriate Mood:: Anxious Affect:: Constricted Thoughts:: Linear, No evidence of hallucinations/delusions noted Staff Interventions:: Therapist facilitated discussion about what is keeping client?s stuck from moving toward mental wellness. Therapist assisted clients in connecting how thoughts can contribute to keeping clients stuck. Therapist led discussion about barriers clients face from making changes to help one move forward. Therapist provided support by using active listening and giving feedback to others.
== END 2017-08-21 12:30 | disposition home or self-care (01) ==
LOC: BHIOP 09:00
PROVIDERS: Visit Provider Psychiatry & Neurology Psychiatry
DX: F31.81 Bipolar II disorder (principal); F41.9 Anxiety disorder, unspecified; F43.10 Post-traumatic stress disorder, unspecified; F11.20 Opioid dependence, uncomplicated; F12.20 Cannabis dependence, uncomplicated; Z79.899 Other long term (current) drug therapy
CPT/HCPCS: H0035; H2012; H2020; 90832

== ENCOUNTER 2017-08-25 19:19 | Emergency (ER) | payer MEDICAID, SELFPAY ==
[2017-08-25 19:20] VITALS: BP 148/91; PULSE 100; RESP 18; TEMP 36.6; O2SAT 95; BMI 32.3
--- NOTE | 2017-08-25 20:10 | ED.VISSUMM ---
- ER Visit Summary Date of Service: 08/25/17 Chief Complaint: Dental pain History of Present Illness: The patient is a 26 F [place] to the emergency department with dental pain. The patient had caps placed about a month ago. She anxious her dentist today. She is complaining of some dull ache in the middle. She has pain when she chews. She has not been on antibiotics recently. She has been taking ibuprofen with little relief. Physical Examination: The patient has silver type caps on teeth 28, 29, and 30. There is some tenderness with palpation. There is no Sunny angina. Some of the space is soft. No trismus or stridor. Test Results: [] Emergency Department Course and Treatment: Patient I suspect likely has persistent infection under her. There is no Sunny angina. Her exam is unremarkable. I am going to place the patient on Augmentin. I did chemical dependency counselor her that if she needs acute analgesics, she will need to get them from her dentist who she saw today and did not feel that she needed these medications. The patient will be discharged home. Treatment Plan: [] Disposition: Discharge Impression:. Dental pain This note was generated with [employer] dictation software. It may contain incorrect words, spelling, and punctuation that were not noted in review of the chart prior to signing ED Disposition - Plan for ED Patient: Chief Complaint: Dental Instructions: ED Tooth Pain Prescriptions: Amox/Clavulanate Tablet [Augmentin Tablet] 875 mg PO Q12H #20 tab Naproxen [Naprosyn] 500 mg PO BID #20 tab Referrals: Care Physician,No Primary [Primary Care Provider] -
[2017-08-25] MEDS: Amox/Clavulanate 875 MG Tablet PO (20:17)
[2017-08-25 20:18] VITALS: BP 136/78; PULSE 94; RESP 18; O2SAT 98
== END 2017-08-25 20:20 | disposition home or self-care (01) ==
PROVIDERS: Emergency Provider Emergency Medicine
DX: K08.89 Other specified disorders of teeth and supporting structures (principal); Z98.811 Dental restoration status
CPT/HCPCS: 99283

== ENCOUNTER 2017-11-25 17:46 | Emergency (ER) | payer MEDICAID, SELFPAY ==
[2017-11-25 17:47] VITALS: BP 157/90; PULSE 83; RESP 16; TEMP 37.2; O2SAT 97; BMI 30.9
--- NOTE | 2017-11-25 18:04 | ED.DCSUM_ITS ---
- ER Visit Summary Date of Service: 11/25/17 Chief Complaint: Dental pain and facial swelling History of Present Illness: The patient is a 27 F with recurrent dental infection on some previously capped teeth. She follows with [facility]. Patient reports mild right facial swelling for the past 3 days they got significantly worse today. Patient was reportedly seen at [facility] earlier today and given a prescription for clindamycin. She has taken one dose. She did take a dose of ibuprofen 800 mg at some point over the past couple of days. She states on day #2 of her symptoms her mother did give her a dose of Vicodin did not help. Physical Examination: Vital signs significant for blood pressure 157/90, otherwise unremarkable. Patient is sitting upright in bed. Head and neck examination does reveal right facial edema over the mandibular region. No excessive facial erythema or warmth are noted. Intraoral examination reveals tenderness over the right mandibular molars. There is mild surrounding gum edema. There is no Sunny's angina. No significant cervical lymphadenopathy. TMs are clear bilaterally. Test Results: [] Emergency Department Course and Treatment: Patient be written for naproxen and first dose given here. I advised her to give her a single dose of oxycodone here, but could not write her a prescription for narcotics. She is to follow- up with her dentist as soon as possible. Treatment Plan: [] Disposition: Discharge Impression: Dental abscess This note was generated with [employer] dictation software. It may contain incorrect words, spelling, and punctuation that were not noted in review of the chart prior to signing ED Disposition - Plan for ED Patient: Chief Complaint: Dental Referrals: Care Physician,No Primary [Primary Care Provider] -
--- NOTE | 2017-11-25 18:04 | ED.DEP ---
ED Disposition - Plan for ED Patient: Disposition: Home or Assisted Living Chief Complaint: Dental Instructions: ED Abscess Dental Prescriptions: Naproxen [Naprosyn] 500 mg PO BID PRN #20 tablet Additional Instructions: Follow-up with your dentist as soon as possible.
[2017-11-25] MEDS: oxyCODONE 5 MG Tablet 10 MG PO (18:21)
[2017-11-25] MEDS: Naproxen 500 MG Tablet PO (18:21)
== END 2017-11-25 18:22 | disposition home or self-care (01) ==
LOC: ED 18:13
PROVIDERS: Emergency Provider Emergency Medicine
DX: K04.7 Periapical abscess without sinus (principal); H92.01 Otalgia, right ear; F41.9 Anxiety disorder, unspecified; Z72.0 Tobacco use; Z90.49 Acquired absence of other specified parts of digestive tract
CPT/HCPCS: 99283

== ENCOUNTER 2018-01-16 14:02 | Emergency (ER) | payer MEDICAID, SELFPAY ==
[2018-01-16 14:02] VITALS: BP 162/78; PULSE 96; RESP 22; TEMP 36.4; O2SAT 99; BMI 32.9
[2018-01-16] MEDS: Morphine 4 MG/ML Syringe IM (14:23)
[2018-01-16] MEDS: Ketorolac 60 MG/2 ML Vial IM (14:24)
[2018-01-16] MEDS: Orphenadrine 60 MG/2 ML Ampul IM (14:24)
--- NOTE | 2018-01-16 14:25 | ED.DCSUM_ITS ---
- ER Visit Summary Date of Service: 01/16/18 Chief Complaint: Back pain History of Present Illness: The patient is a 27 F presents to the emergency department with back pain. The patient states she has had symptoms for the past 3 weeks. States that she was twisting and felt something pull in her low back. Since then, she has had worsening pain in her back down her left leg. She was seen in the emergency department at [facility]. She was given analgesics. She states that they really have not helped. She did follow-up with orthopedics here and is scheduled for an outpatient MRI when she can get preauthorization. States the pain is been worsening. She denies any weakness of the leg. She had no problems of bowel or bladder. She has no history of IV drug abuse. She denies any new trauma. She states that she feels like she cannot get comfortable. Physical Examination: Afebrile, vitals unremarkable. Well-appearing female no acute distress. Head is normocephalic, atraumatic. Pupil's equal round reactive, extraocular muscles intact. Neck supple. Heart regular rate and rhythm. Lungs clear, chest nontender. Abdomen soft, nontender, nondistended. No pulsatile mass. Patient has paraspinal tenderness in the lumbar area, but no bony tenderness. Straight leg raise is positive on the left from the supine position causing paresthesia down the leg. 2+ symmetric lower extremity pulses. 2+ reflexes. No clonus. No weakness of dorsiflexion, plantar flexion, or e xtensor hallucis longus bilaterally. Test Results: [] Emergency Department Course and Treatment: The patient's examination is consistent with an acute radiculopathy. Her pulses are normal. Reflexes are normal. She has a normal gait. There is no weakness of dorsiflexion, plantar flexion, extensor hallucis longus. I do not feel the patient needs emergent MRI. She has no symptoms of cauda equina, epidural abscess, or other dangerous process. We will treat the patient with a short course of analgesics and Medrol. She will follow-up with orthopedics as scheduled. She was counseled on concerning symptoms and reasons to return. Treatment Plan: [] Disposition: Discharge Impression: 1. Acute radiculopathy of the low back in the left leg This note was generated with [employer] software. It may contain incorrect words, spelling, and punctuation that were not noted in review of the chart prior to signing ED Disposition - Plan for ED Patient: Chief Complaint: Back Instructions: ED Sciatica Prescriptions: Oxycodone HCl/Acetaminophen [Percocet 5/325] 1 tab PO Q6H PRN PRN 3 Days #12 tab PRN Reason: Pain Diazepam [Valium] 5 mg PO Q8 PRN #10 tab PRN Reason: Muscle Spasm MethylPREDNISolone DosePak [Medrol DosePak] 4 mg PO UD #1 box Referrals: Sonny Finn PA-C [PHYSICIAN EDITORIAL MANAGER] -
[2018-01-16 14:57] VITALS: BP 130/84; PULSE 93; RESP 16; O2SAT 98
== END 2018-01-16 15:03 | disposition home or self-care (01) ==
PROVIDERS: Emergency Provider Emergency Medicine
DX: M54.16 Radiculopathy, lumbar region (principal); S39.012A Strain of muscle, fascia and tendon of lower back, initial encounter; X50.1XXA Overexertion from prolonged static or awkward postures, initial encounter; Y93.9 Activity, unspecified; Y92.9 Unspecified place or not applicable; Y99.9 Unspecified external cause status
CPT/HCPCS: 96372; 99282

== ENCOUNTER 2018-01-23 11:27 | Emergency (ER) | payer MEDICAID, SELFPAY ==
[2018-01-23 11:28] VITALS: BP 115/82; PULSE 136; RESP 20; TEMP 36.1; O2SAT 99; BMI 30.7
[2018-01-23] MEDS: morphine 10 MG/ML Syringe IM (11:56)
[2018-01-23] MEDS: Ondansetron 4 MG/2 ML Vial IM (11:56)
--- NOTE | 2018-01-23 12:21 | ED.DCSUM_ITS ---
- ER Visit Summary Date of Service: 01/23/18 Chief Complaint: Back pain History of Present Illness: The patient is a 27 F presenting with back pain. States this started around December 26 after lifting a laundry basket. She has had severe back pain since that time. She has been seen by orthopedics. She was put into physical therapy and is awaiting MRI. She states the physical therapy is difficult for her secondary to pain. She has been taking ibuprofen at home. She has recently finished a course of steroids. She has tried muscle relaxers as well. She denies bowel or bladder incontinence. Denies fever. She is able to ambulate with pain. Physical Examination: Vitals are stable. Patient is afebrile. Alert no acute distress. HEENT exam is unremarkable. Neck is supple. Lungs are clear and equal bilaterally. Heart is regular rate and rhythm. Abdomen is soft nontender nondistended. Back: Left paraspinal lumbar muscle tenderness, straight leg raise positive at 30 degrees on the left Extremities are unremarkable. Skin is warm and dry. No focal neurologic deficit. Normal strength and sensation. No foot drop Remainder of exam is unremarkable. Emergency Department Course and Treatment: Patient given morphine, Zofran IM with improvement. On reevaluation, patient feels improved. She is given a short course of Percocet for home. She is advised to follow-up with her orthopedic surgeon. Advised return to ED for any worsening complaints. Disposition: Discharge home Impression: Sciatica This note was generated with [employer] dictation software. It may contain incorrect words, spelling, and punctuation that were not noted in review of the chart prior to signing ED Disposition - Plan for ED Patient: Chief Complaint: Back Instructions: ED Neck Back Pain General Prescriptions: Oxycodone HCl/Acetaminophen [Percocet 5/325] 1 tablet PO Q6H PRN PRN 3 Days #12 tablet PRN Reason: Pain Referrals: Care Physician,No Primary [Primary Care Provider] -
--- NOTE | 2018-01-23 13:28 | ED.DEP ---
ED Disposition - Plan for ED Patient: Chief Complaint: Back Instructions: ED Neck Back Pain General Prescriptions: Oxycodone HCl/Acetaminophen [Percocet 5/325] 1 tablet PO Q6H PRN PRN 3 Days #12 tablet PRN Reason: Pain Referrals: Care Physician,No Primary [Primary Care Provider] -
[2018-01-23 13:36] VITALS: BP 120/85; PULSE 98; RESP 14; O2SAT 97
== END 2018-01-23 13:37 | disposition home or self-care (01) ==
PROVIDERS: Emergency Provider Emergency Medicine
DX: M54.30 Sciatica, unspecified side (principal); G89.29 Other chronic pain
CPT/HCPCS: 96372; 99282; J2405

== ENCOUNTER 2020-09-08 14:31 | Emergency (ER) | payer MEDICAID, SELFPAY ==
[2020-09-08 14:34] VITALS: BP 146/92; PULSE 66; RESP 16; TEMP 36.6; O2SAT 98
--- NOTE | 2020-09-08 14:37 | CT_ITS ---
STUDY: CT HEAD STROKE PROTOCOL W/O CONTRAST INJECTION REASON FOR EXAM: Female, 29 years old. Neuro deficit, acute, stroke suspected RADIATION DOSAGE (If Supplied By Facility): CTDIvol = ( 44.99 ) mGy, DLP = ( 812.98 ) mGycm TECHNIQUE: Transaxial CT imaging of the brain was performed without administration of intravenous contrast material. Individualized dose optimization techniques were used for this CT. COMPARISON: Comparison is made with prior examination 12/09/2016. FINDINGS: Normal soft tissue structures. Normal calvarium. Normal size ventricles and extra-axial spaces for the patient''s age. Normal white matter tracts of the cerebral hemispheres. Old lacunae is seen in the left basal ganglion. Since prior study, there is evidence of a 6.5 mm lacuna in the distal body of the right caudate nucleus. Normal brainstem. Normal cerebellum. There is no intracranial hemorrhage. There are no findings of an acute ischemic infarction. Normal visualized paranasal sinuses. CT/STROKE Brain/Head without Cont IMPRESSION: Stable lacunae in the left basal ganglia. New lacunar is seen in the distal body of the right caudate nucleus. N.B. : The above information has been verbally conveyed by Uri Rayo MD to En Nguyen on 09/08/2020 14:58:04 (ET). Electronically Signed: Uri Rayo MD at 14:59 EDT , Service support ,
--- NOTE | 2020-09-08 14:37 | EKG12_ITS ---
Test Reason : STROKE TEAM Blood Pressure : / mmHG Vent. Rate : 070 BPM Atrial Rate : 070 BPM P-R Int : 150 ms QRS Dur : 078 ms QT Int : 378 ms P-R-T Axes : 035 053 047 degrees QTc Int : 408 ms Normal sinus rhythm Normal ECG Confirmed by SAIDA TRINIDAD, DUNCAN ([id number]), technical editor DONA SIFUENTES ([id number]) on 09/12/2020 1:57:49 PM Referred By: ATUL Confirmed By:DUNCAN CINTRON MD
--- NOTE | 2020-09-08 14:39 | CT_ITS ---
STUDY: CTA HEAD AND NECK WITH CONTRAST REASON FOR EXAM: Female, 29 years old. Left hemiparesis RADIATION DOSAGE (If Supplied By Facility): CTDIvol = ( 19.53 ) mGy, DLP = ( 657.82 ) mGycm TECHNIQUE: CT angiography was performed with a multi-detector CT scanner. Data acquisition was obtained from the skull base through the vertex following intravenous administration of IV 100mL Isovue-370. MIP images were reconstructed from the axial data set. Post-processing of the angiographic images was performed, with multiplanar reformation and 3D reconstruction. Individualized dose optimization techniques were used for this CT. COMPARISON: No relevant priors. FINDINGS: Normal bilateral petrous carotid arteries. Normal right cavernous carotid artery with a normal supraclinoid bifurcation. Normal left cavernous carotid artery with a normal supraclinoid bifurcation. Normal right A1 segments of the anterior cerebral artery. Normal left A1 segments of the anterior cerebral artery. Normal intact anterior communicating artery (ACOM). Normal bilateral A2 segments of the anterior cerebral arteries. A filling defect is seen in the distal portion of the M1 segment of the right middle cerebral artery. There is decreased flow to branches of the right sylvian fissure. Oormal left M1 and M2 segments of the middle cerebral arteries, with a normal M1 bifurcation. Normal right posterior communicating artery (PCOM). Normal left posterior communicating artery (PCOM). Normal bilateral vertebral arteries. Normal basilar artery with a normal basilar bifurcation. The visualized bilateral superior cerebellar (SCA) arteries are normal. Normal bilateral P1, P2 and visualized P3 segments of the posterior cerebral arteries. There is no demonstrated aneurysm of the [place]. There is no demonstrated abnormality of the visualized brain. AORTIC ARCH: Normal visualized aortic arch. Normal origins of the brachiocephalic, left common carotid, and left subclavian arteries. RIGHT CAROTID ARTERIES: Normal right common carotid artery (CCA). Normal right common carotid bulb. Normal origin of the right internal carotid (ICA) artery without a hemodynamically significant stenosis. Normal visualized cervical portion of the right internal carotid artery. Normal origin of the right external carotid artery (ECA). LEFT CAROTID ARTERIES: Normal left common carotid artery (CCA). Normal left common carotid bulb. Normal origin of the left internal carotid (ICA) artery without a hemodynamically significant stenosis. Normal visualized cervical portion of the left internal carotid artery. Normal origin of the left external carotid artery (ECA). VERTEBRAL ARTERIES: Normal bilateral vertebral arteries. CT/STROKE CTA Head AND Neck W/Con IMPRESSION: Filling defect suggestive of a thrombus in the distal portion of the right M1 segment of the right middle cerebral artery with decreased flow in the branches of the right sylvian fissure. N.B. : The above information has been verbally conveyed by Uri Rayo MD to En Patrick on 09/08/2020 15:04:46 (ET). Electronically Signed: Uri Rayo MD at 15:06 EDT , Service support ,
--- NOTE | 2020-09-08 14:39 | NURSING ---
NO OLD EKGS
--- NOTE | 2020-09-08 14:41 | NURSING ---
STROKE ALERT CALLED [id number]
--- NOTE | 2020-09-08 14:42 | ED.VIS.STROK ---
HPI History of Present Illness Chief Complaint: Neuro S/Sx Informant: patient Onset/Context/Timing Onset: Today and Hours (30 minutes ago) Context: Sudden Onset Timing: Continuous Quality and Location: Positive for Left Facial Droop, Left Arm Weakness, Left Leg Weakness and Slurred Speech Onset: Sudden while awake Current Severity: Severe Maximum Severity: Severe Worsened by: Nothing Relieved by: Nothing Associated Symptoms Associated Symptoms: Positive for Headache; Negative for Nausea, Vomiting and Chest Pain Narrative Narrative: Patient states she has had an occipital headache for a month, and 30 minutes prior to arrival she had sudden onset of weakness in her left arm and leg as well as slurred speech. She has never had this happen before. She has no history of stroke or any medical problems that she know of, she takes no medications. PFSH PFSH no medical history Home Medications NK 09/08/20 [History Last Taken Unknown] Allergy/AdvReac Type Severity Reaction Status Date / Time No Known Allergies Allergy Verified 09/08/20 15:09 Family History (Updated 09/08/20 @ 15:11 by Carmen Heck) Grandmother CVA (cerebral vascular accident) Grandfather Myocardial infarction Surgical History History of cholecystectomy Social History (Updated 09/08/20 @ 15:11 by Carmen Heck) Smoking Status: Current every day smoker tobacco type: cigarettes Tobacco: How many years used: 12 ROS ROS ED Constitutional Constitutional ED: Denies chills or fever(s) Eyes Eyes: Denies change in vision or diplopia ENT ENT ED: Denies rhinorrhea or sore throat Cardiovascular Cardiovascular: Denies chest pain or palpitations Respiratory/Chest Respiratory/Chest: Denies cough or dyspnea Gastrointestinal Gastrointestinal: Denies abdominal pain, diarrhea, nausea or vomiting Genitourinary Genitourinary ED: Denies dysuria or hematuria Musculoskeletal Musculoskeletal: Denies back pain or neck pain Integumentary Denies abscess or rash Neurologic Neurologic: Reports as per HPI Psychiatric Psychiatric: Denies anxiety or suicidal thoughts EXAM Physical Exam Const Vital Signs: 09/08/20 14:34 09/08/20 14:47 09/08/20 15:06 Temperature 97.8 F Temperature Source Temporal Pulse Rate 66 83 Respiratory Rate 16 18 Blood Pressure 146/92 H 113/66 Blood Pressure Mean 110 81 Pulse Ox 98 99 99 Oxygen Delivery Method Room Air Room Air Room Air 09/08/20 15:15 Temperature Temperature Source Pulse Rate 72 Respiratory Rate 13 Blood Pressure 133/96 H Blood Pressure Mean 108 Pulse Ox 98 Oxygen Delivery Method Room Air Positive well nourished and well developed General Appearance ED: well developed and NAD HEENT Reports moist mucous membranes normocephalic and atraumatic Eyes PERRL and EOMs intact bilaterally Neck full ROM and supple Resp normal respiratory effort and clear to auscultation bilaterally Cardio regular rate, regular rhythm and no murmurs GI non-tender and non-distended Auscultation: normoactive bowel sounds Palpation: soft Back/Spine no CVA tenderness General Back: other FROM Extremity normal to inspection General Extremety ED: Negative for edema, pulses abnormal or tenderness General Extremity: Negative for edema or pulses abnormal Neuro oriented x3 Sensorium / Orientation: awake and alert Skin no rashes or lesions noted and no wounds STROKE Vital Signs/Narrative: Vital Signs Temp Pulse Resp BP Pulse Ox 09/08/20 15:15 72 13 133/96 H 98 09/08/20 15:06 99 09/08/20 14:47 83 18 113/66 99 09/08/20 14:34 97.8 F 66 16 146/92 H 98 NIHSS Initial: 1a Level of Consciousness: 0 1b LOC Questions (Score 2 if aphasic/stupor): 0 1c LOC Commands (Only score 1st attempt): 0 2 Best Gaze (If aphasic, use reflexive mvmts.): 0 3 Visual: 0 4 Facial Palsy: 2 5 Motor Arm Right (UN = amputation/fusion): 0 5 Motor Arm Left: 3 6 Motor Leg Right: 0 6 Motor Leg Left: 4 7 Limb ataxia (Only + if out of proportion): 0 8 Sensory (Aphasia/stupor=0 or 1, coma=2): 1 9 Best Language: 0 10 Dysarthria (mute, coma=2, intubated=UN): 1 11 Extinction and Inattention (only scored if +): 0 Total Score: 11 MDM MDM MDM Narrative Medical decision making narrative: Patient walked in through triage, a stroke alert was called immediately, I was then notified and I saw the patient while being transferred to the CT scanner table. I initially performed neurologic evaluation there. Airway was intact patient was alert and oriented and able to follow commands and converse. She said that her symptoms started 30 minutes ago. She had no contraindications for TPA given that her initial CT showed no hemorrhage, so TPA was ordered as we were getting neurologic consultation. Pharmacy mixed it. However, upon talking to the patient further, she change the history, indicating that she started having weakness yesterday and she does not know exactly what time, and then 30 minutes prior to arrival here in the ER everything got a lot worse. For these reasons, TPA was canceled and not given to the patient. CT angiography which was performed simultaneous with the plain CT shows an occlusion of the distal M1 segment of the right MCA. Given this, the patient is potentially a candidate for thrombectomy, I discussed with Dr. Mirza with neurology at [facility], who agrees that the patient meets criteria for further evaluation for thrombectomy and should be transferred to the ER as a level 1 as soon as possible. Unfortunately, it is storming in [place] right now, I discussed with [facility] and they are arranging for instrument flight and ground transportation to and from the helicopter to get the patient to the hospital soon as possible. I discussed with the patient and her father in ER aware of the severity of the scenario and the need for transfer. Lab Data Attestation: I reviewed the patient's lab results. Labs: Laboratory Results - last 24 hr 09/08/20 09/08/20 09/08/20 14:50 14:50 14:50 WBC 10.0 RBC 3.75 L Hgb 11.5 L Hct 35.0 L MCV 93.3 MCH 30.7 MCHC 32.9 RDW Std Deviation 42.6 RDW Coeff of Solo 12.5 Plt Count 314 MPV 9.1 Immature Gran % (Auto) 0.300 Neut % (Auto) 66.6 Lymph % (Auto) 25.9 [place] % (Auto) 5.6 Eos % (Auto) 1.0 Baso % (Auto) 0.6 Absolute Neuts (auto) 6.7 Absolute Lymphs (auto) 2.60 Nucleated RBC % 0 APTT 28.8 Sodium 137 Potassium 3.4 L Chloride 106 Carbon Dioxide 25.0 Anion Gap 6 BUN 10 Creatinine 0.76 Estim Creat Clear Calc 103.17 Est GFR (MDRD) Af Amer 116 Est GFR (MDRD) Non-Af 96 BUN/Creatinine Ratio 13.2 Glucose 94 Calcium 8.5 Troponin I < 0.015 Radiography Diagnostic Testing: Radiology Impression Brain CT 09/08/20 14:37 IMPRESSION: Stable lacunae in the left basal ganglia. New lacunar is seen in the distal body of the right caudate nucleus. N.B. : The above information has been verbally conveyed by Uri Rayo MD to En Nguyen on 09/08/2020 14:58:04 (ET). Electronically Signed: Uri Rayo MD at 14:59 EDT , Service support , ADDENDUM: 09/08/20 1506 IMPRESSION: Stable lacunae in the left basal ganglia. New lacunar is seen in the distal body of the right caudate nucleus. N.B. : The above information has been verbally conveyed by Uri Rayo MD to En Nguyen on 09/08/2020 14:58:04 (ET). Electronically Signed: Uri Rayo MD at 14:59 EDT , Service support , Head/Neck CTA 09/08/20 14:39 IMPRESSION: Filling defect suggestive of a thrombus in the distal portion of the right M1 segment of the right middle cerebral artery with decreased flow in the branches of the right sylvian fissure. N.B. : The above information has been verbally conveyed by Uri Rayo MD to En Nguyen on 09/08/2020 15:04:46 (ET). Electronically Signed: Uri Rayo MD at 15:06 EDT , Service support , ADDENDUM: 09/08/20 1513 IMPRESSION: Filling defect suggestive of a thrombus in the distal portion of the right M1 segment of the right middle cerebral artery with decreased flow in the branches of the right sylvian fissure. N.B. : The above information has been verbally conveyed by Uri Rayo MD to En Nguyen on 09/08/2020 15:04:46 (ET). Electronically Signed: Uri Rayo MD at 15:06 EDT , Service support , EKG Initial EKG: Attestation: I personally reviewed and interpreted this EKG as follows: Interpretation: Sinus Rhythm and No Acute Injury Pattern Comments: Normal EKG, rate 70 Prior EKG tracings: not available for review Stroke Documentation Questions Stroke Team Activated: Yes Reviewed Inclusion/Exclusion criteria: Yes Was Patient considered for Endovascular Intervention?: Yes IV Alteplase (t-PA) Administered: No No contraindications for IV Alteplase (t-PA) administration.: Yes (Timing see above) Critical Care Time Critical Care Time: Yes Critical care time (excluding procedures): 30-74 minutes (40 minutes including documentation), Including time spent:, Discussing w/Patient &/or Family/Yarn Comber, Discussing w/Consultants, Arranging Admission or Transfer and Performing Direct Patient Care at Bedside Discharge Plan Triage Chief Complaint: Neuro S/Sx ED Provider: En Nguyen Dx/Rx/DC Orders Clinical Impression: Acute ischemic right MCA stroke Prescriptions: No Action NK RF: 0 Primary Care Provider: Care Physician,No Primary Referrals: Care Physician,No Primary [Primary Care Provider] - Disposition Disposition: Acute Care Hospital
[2020-09-08 14:46] VITALS: BMI 26.5
[2020-09-08 14:47] VITALS: BP 113/66; PULSE 83; RESP 18; O2SAT 99
[2020-09-08 14:57] LABS: Absolute Neutrophil Count 6.7 X10^3/uL (2.0-7.7); Basophil# 0.06 X10^3/uL; Basophil% 0.6 % (0-1); Hemoglobin 11.5 g/dL (12.0-15.0); Lymphocyte % 25.9 % (19-41); Mean Corp Hgb Conc 32.9 g/dL (32-36); Mean Corpuscular Hgb 30.7 pg (27.0-32.0); Mean Corpuscular Volume 93.3 fL (81-99); Mean Platelet Vol. 9.1 fl (6.2-12.0); Monocyte# 0.56 X10^3/uL; Monocyte% 5.6 % (0-10); NRBC Flagged by Analyzer 0 % (0-5); Neutrophil # 6.68 X10^3/uL (2.7-7.7); Neutrophil % 66.6 % (47-70); Platelet Count 314 K/mm3 (150-450); RBC Distribution Width CV 12.5 % (11.6-14.6); RBC Distribution Width SD 42.6 fl (35.1-43.9); Red Blood Count 3.75 M/mm3 (4.2-5.4)
[2020-09-08 15:06] VITALS: O2SAT 99
[2020-09-08 15:11] LABS: Partial Thromboplast Time 28.8 Seconds (24.1-36.2)
[2020-09-08 15:15] VITALS: BP 133/96; PULSE 72; RESP 13; O2SAT 98
--- NOTE | 2020-09-08 15:16 | ED.RN ---
pt in ct from [id number].
[2020-09-08 15:19] LABS: Anion Gap 6 (5-15); BUN 10 mg/dL (7-18); BUN/Creat Ratio 13.2 RATIO (10-20); Calcium,Total 8.5 mg/dL (8.5-10.1); Chloride 106 mmol/L (98-107); Creatinine, Serum 0.76 mg/dL (0.55-1.02); EST Glomerular Filtration Rate 96 mL/min (>60); Est Glom Filt Rate - Afr Amer 116 mL/min (>60); Estimated Creatinine Clearance 103.17 ml/min; Glucose 94 mg/dL (74-106); Potassium 3.4 mmol/L (3.5-5.1); Sodium Level 137 mmol/L (136-145)
[2020-09-08 15:30] LABS: International Normalized Ratio 1.3; Prothrombin Time (Protime)PT. 15.3 SECONDS (11.7-14.9)
[2020-09-08] MEDS: 0.9% Normal Saline 1,000 ML 100 ML IV (15:37)
[2020-09-08 15:45] VITALS: BP 125/76; PULSE 85; RESP 18; O2SAT 100
[2020-09-11 07:21] LABS: Bedside Glucose 94 mg/dL (70-110)
== END 2020-09-08 15:58 | disposition short-term general hospital (02) ==
PROVIDERS: Emergency Provider Emergency Medicine; PCP Nurse Practitioner Primary Care
DX: I63.9 Cerebral infarction, unspecified (principal); F17.210 Nicotine dependence, cigarettes, uncomplicated; R29.711 NIHSS score 11
CPT/HCPCS: 70450; 70496; 70498; 80048; 82962; 84484; 85025; 85610; 85730; 93005; 99285; J2997; Q9967; A4216

== ENCOUNTER 2021-06-25 13:00 | Outpatient (RCR) | payer MEDICAID, SELFPAY ==
--- NOTE | 2020-12-07 13:27 | HP.PTEVAL_ITS ---
Patient's Visit Information LAINE ANDRES is a 30 year old F referred to Physical Therapy by GERALDINE Go with a diagnosis of CVA. Date of Evaluation: 12/07/20 Physical Therapist: Candi Lyn PT, Cert MDT - Visit Plan Frequency: 2-3x /Week Duration: 3 Months Plan: *BACK PAIN AND H/O 2 BACK SURGERIES*. GAIT AND BALANCE TRAINING. TRUNK AND ADRIAN LE ROM, STRETCHING AND STRENGTHEING TO HEP MEET SET GOALS. - Subjective Work/Leisure: WAS DOING [employer] PRIOR TO STROKE. WAS WORKING AT LEAST 40 HOURS A WEEK. 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 Disability: NO. Present symptoms: LOW BACK PAIN. L FOOT DROP. LEFT KNEE WEAKNESS. L KNEE GOES BACKWARDS WALKING. WEARING LEFT AFO. HAS A KNEE BRACE TOO. PATIENT HAS THE KNEE BRACE WITH HER BUT NOT ON. PATIENT DENIES ADRIAN LE NUMBNESS AND TINGLING. Present since: SEP 08 2020 (AT THAT TIME THEY ALSO FOUND H/O SMALLER STROKES IN THE PAST). Pain Scale: BACK PAIN: WORST 8/10, LEAST 2/10. Currently: 3/10. Commenced as a result of: BLOOD CLOT FROM HOLE IN HEART THAT SHE STATES SHE HAS HAD FROM BUT NEVER DIAGNOSED. Symptoms at onset: SLURRED SPEECH AND DIFFICULTY PINCHING WITH LEFT FINGERS. ACTUALLY WENT TO THE [facility] FOR HEARING AND RAN UP THE STEPS NOT REALIZING SHE WAS HAVING A STROKE. AFTER SHE GOT HOME SHE WASN'T ABLE TO GET OUT OF THE CHAIR AND HER DAD TOOK HER TO THE ED. Worse: SITTING, STANDING AND WALKING. Better: GETTING IT POPPED, HEATING PAD. Disturbed sleep: SOMETIMES (3 OUT OF 5 NIGHTS ABLE TO SLEEP THROUGH THE NIGHT). Previous history/Previous treatment: 2 BACK SURGERIES ON L5-S1 2015. PATIENT REPORTS HERNIATED DISC EFFECTING LLE. Treatment this episode: [facility] TO [place] [facility]IA [facility] FOR ABOUT 6 WEEKS. HAD SOME SEIZURES BUT REPORTS THEY HAVE RESOLVED AND SHE DOESN'T THINK SHE HAS HAD ANY SINCE SHE WAS IN [place]. STATES SHE HAD A LOT OF SWELLING ON HER BRAIN. STATES THEY ATTEMPTED MESH PLACEMENT ON HEART BUT STOPPED DUE TO SEIZURE. HOME HEALTH FROM OCTOBER 12 UNTIL 12/05 WHEN SHE WAS D/C'D BY THE HOME HEALTH NURSE. LAST PT SESSION WAS A WEEK AGO. Gait: PATIENT REPORTS SHE IS WALKING WITH A TIERA WALKER ABOUT 75 STEPS ABOUT ONCE A DAY. PATIENT REPORTS SHE IS SITTING MOST OF THE TIME. Difficulty initiating urinatin: NORMAL. Accidents: NO. PMH: DEPRESSION. RIGHT EYE BLINDNESS. ON BACLAFEN, MUSCLE RELAXER, ANXIETY MEDICINE, AND BABY ASPIRIN. PLOF (Prior Level of Function): PATIENT REPORTS SHE RECOVERED FROM THE BACK SURGERIES AND HER ACTIVITY LEVEL WAS UNLIMITED PRIOR TO THIS STROKE IN AUGUST 2020. OTHER: LIVES WITH FIANCE. NO STEPS IN HOME. PATIENT REPORTS HER MOM AND DAD LIVE WITH HER AND HER DAD IS GOING THROUGH [employer] CURRENTLY. SHE STATES SHE IS NEVER AT HOME ALONE. - Objective THIS PATIENT WAS BROUGHT TO PT FROM OT IN A W/C BY HER FIANCE MARTITA. THEY ARE BOTH PLEASANT AND COOPERATIVE TO WORK WITH. PATIENT APPEARS HIGHLY MOTIVATED TO RECOVER. SHE IS EASY TO COMMUNICATE WITH AND FOLLOWS COMMANDS WELL. SHE IS WE ARING A L ANKLE AFO AND HER FIANCE PUT HER LEFT KNEE BRACE ON FOR HER. SHE HAS POOR CORE STRENGTH. RIGHT LE STRENGTH IS GROSSLY 4-5/5 WITH MMT'ING. LLE HAS SPASTICITY AND STRENGTH IS GROSSLY FOLLOWS: HIP 3+ TO 4-/5, KNEE EXT 3-/5, KNEE FLEX 3-/5, FOOT DROP WITH NO ACTIVE MVMT. SHE IS ABLE TO INDEP'LY TRANSFER FROM SIT TO STAND FROM W/C WITH ONE UE ASSIST TO THE PARALLEL BARS. STANDING STATIC BALANCE IN THE PARALEL BARS WITHOUT UE ASSIST IS FAIR. DYNAMIC BALANCE REQUIRES ONE UE ASSIST FOR SAFETY WHEN WEIGHT BEARING ON L LE AND L KNEE HYPER- EXTENDS. SHE DEMO'S INDEP GAIT IN THE PARALLEL BARS WITH ONE (R) UE ASSIST 2 LENGTH OF THE BARS INCLUDING TURNING AT THE END AND TURNING TO TRANSFER BACK TO SITTING IN THE W/C. PATIENT TO BRING HER WALKER NEXT VISIT. THIS PT INSTRUCTED PATIENT TO CONTINUE TO HAVE SUPERVISION WITH GAIT AT HOME FOR NOW FOR SAFETY AND PATIENT AGREEABLE. PATIENT WAS FATIGUED END OF SESSION AND SHE HAD OT CONSULT PRIOR TO PT. - Goals Goal 1:: PATIENT WILL DEMONSTRATE INDEP AND SAFE GAIT ON LEVEL SURFACES X 400 FEET WITH TIERA WALKER. Goal Time Frame: 4-6 Weeks Goal 2:: INCREASE ADRIAN LE STRENGTH TO 4-5/5 (EXCEPT L ANKLE) TO EASE ADL'S Goal Time Frame: 8-12 Weeks Goal 3:: PATIENT WILL BE ABLE TO GO UP AND DOWN ONE FLIGHT OF STEPS INDEP'LY AND SAFELY WITH ONE HR AND TIERA-WALKER. Goal Time Frame: 8-12 Weeks Goal 4:: PATIENT WILL BE INDEP WITH HEP FOR CONTINUED IMPROVEMENT ONCE FORMAL PHYSICAL THERAPY CONCLUDES. Goal Time Frame: 8-12 Weeks - Anticipated Interventions Patient/Client Instruction: Educate patient on: Condition, Plan of Care, Risk Factors For the Purpose of:: To improve self management Therapeutic Exercise to Include: Strength training, Endurance training, Balance training, Coordination, Body mechanics, Postural training, Flexibilty training, Gait and locomotor training, Neuromotor development, In an aquatic setting, Passive ROM, Active ROM, Dynamic Lumbar Stabilization Comment: CONSIDER AQUATIC THERAPY AT RE-CHECK. For the Purpose of:: To decrease pain, To increase ROM, To improve muscle performance and motor function, To increase tolerance to activity/condition/position, To improve performance and independence with ADL's, To decrease level of supervision to perform tasks, To improve ability of physical actions for home/community/work/leisure, To improve gait and locomotor functions, To improve safety with gait, To improve safety, To improve self management Thank you for the opportunity to evaluate your patient. For Medicare and Medicare HMO plans, please review the plan of care and approve it. It will need to be FAXED BACK to us at [phone] for Medicare purposes. For Medicare only, by signing this I certify the plan of care. Please let me know if there are questions or concerns regarding this plan of care. Physician Signature:__ Date:
--- NOTE | 2020-12-08 09:04 | HP.OTEVAL_ITS ---
Patient's Visit Information LAINE ANDRES is a 30 year old F, referred to Occupational Therapy by GERALDINE Go, with a diagnosis of CVA. Date of Evaluation: 12/07/20 Occupational Therapist: Jade Tellez, OTR/Jhonny, CHT - Subjective This 30/F was seen for initial OT eval today following a stroke on September 08, 2020. She was admitted to [facility] ER, then moved to [facility] hospitals for a month. She then was transferred to a rehab facility in [place] for approx. 2 months before being d/c home on October 12. She was receiving home health up until last week. She is R handed and her L side was affected by the stroke. She reported that she needs help getting dressing, showering, preparing meals, and transferring from bed to w/c and w/c to bed. She lives with her ruth, her 10 yr old daughter, and her parents in a 2-level home. She has been staying on the ground level and has not attempted to navigate the stairs. 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 She stated that when she first was d/c home, she had no movement in her shoulder and no movement at her elbow. She stated that she is able to sit up in a chair w/o arms now and she doesn't get as tired when she sits, but she needs help sitting up from a supine position. - ROM Shoulder: R: WNL, L: 55* Elbow: R: WNL, L: -10*/35* Forearm: R: WNL, L: neutral Wrist: R: 55*/45*, L: neutral Opposition: R: 10, L: unable ROM Comments: L hand is in composite fist. - Strength Shoulder: R: 4+/5, L: NT Elbow: R: 5/5, L: NT Banking Services Clerk: R: 80#, L: NT Lateral Pinch: R: 18#, L: NT Tripod Pinch: R: 16#, L: NT - Sensation Thumb: R: 2.38, L: 5.18 Index: R: 2.38 L: red line Middle: R: 2.38 L: red line Ring: R: 2.38 L: red line Little: R: 2.38 L: red line Sensation Comments: L IF, MF, RF and LF are at risk of hot/cold/sharp injuries - Movement Muscle Tone: L Mod-Max tone Movement Comments: L shoulder presented at sh flexion with mod tone, L elbow at flexion with mod tone, elbow extension at max tone with movement, mod tone in the wrist, and max tone in the hand. Wrist was able to passive flex, but was unable to passive extend past neutral. Tone increased in triceps with PROM (D1 flexion and extension). 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 pt will demonstrate full elbow flex/ext to increase pts independence with ADLs and IADLs by d/c. pt will demonstrate functional wrist flex/extension to increase pts independence with ADLs and IADLs by d/c. Pt will demonstrate ability to grasp objects and fully extend fingers to increase pts independence in ADLs and IADLs by d/c. Goal:: pt will demonstrate an increase in sensation with monofilaments to 2.38 to prevent further injury by d/c. Goal:: Pt will self-report an increase in her ADL independence during morning dressing tasks from dependent to min assist by d/c. Goal:: pt will self-report ability to transfer from bed to w/c independently by d/c. - Rehabilitation General Assessment: Pt demonstrated increased tone in her shoulder, elbow, wrist, and hand, as well as decreased sensations and decreased ROM in L UE. Pt would benefit from skilled OT services 3 x a week for 4 weeks to increase ROM, sensation and decrease tone. Today, therapist took initial measurements and educated pt and partner on AAROM exercise to be done at home (with free weight, using gravity to initiate movement). Rehabilitation Potential: Good - Anticipated Interventions A/AAROM/PROM, Strengthening, Joint Protection/Energy Conservation, Ergonomic Education, Fine Motor Coord/Obed, Neuro Reeducation, Sensory Stimulation, ADL Training, Caregiver Training, Home Program - Visit Plan Frequency: 3x /Week Duration: 4 Weeks TEXT: Thank you for the opportunity to evaluate your patient. For Medicare and Medicare HMO plans, please review the plan of care and approve it. It will need to be FAXED BACK to us at [phone] for Medicare purposes. Please let me know if there are questions or concerns regarding this plan of care. Physician Signature: Date:
--- NOTE | 2021-01-15 16:05 | HP.PTREVAL ---
Lita Dao, [facility], It has been my pleasure to treat LAINE ANDRES over the last 13 visits for CVA. Please see the progress note below for an update on the physical therapy plan of care! Subjective: Getting around alot better than 6 weeks ago. Using LBQC at home. Had two falls last week while walking with dad in back yard on grass and turning was the problem. No problem on normal floors. has steps to basement and big steps with bar at home on her own. Supervised. Basement holds storage and has railing and she can go down there. No pain. Sleep is OK with 2 melatonin. Lives with mom and dad and they are home all day. Unable to drive or collect metal. Sees primary care at [place] in two weeks. Will see [facility] neuro sometime soon. Spending day reading. Used to enjoy treasure collecting but not doing that anymore. Wants to keep going with PT and will continue to do band with legs at home. Objective/Function: Walks on firm flat surface qith LBQC in R UE safe and mod I but no R step length adn abducted L hip preferring to bear weight through R and minimizing stance time on L. Trasnfers I without UE out of chair. Steps are reciprocal up if encouraged and needs to curcumdict L leg to get it up the step, cathes toe at tiimes and needs rail for safety. Descending steps prefers to lead with L and needs one rail for safety. Can do either leg but less eccentric control with L. Ankle AAROM is nil on L, PROM to -15 DF and WFL ev/inv and PF. Knee AROM good extension and weak struggle siwth knee flexion at 3/5 strength adn extension 4/5. Hip ext 3+ and abd 4- and flexion 3+. R sided is 4+. Dons and doffs AFO I herself despite L UE being mostly dysfunctional and is having OT for this but not seeing as much improvement. Walks without AD today with Min A for balance and similar attern to using cane but fatigues quickly and is slow, did 40 feet today. Overall good progress with mobility in first 6 weeks of PT and appropriate to continue toward goals and new goals. Fair prognosis. Plan Plan: 3x/week for 4-6 weeks for... 1. Get on standing HEP with WB L(currently doing seated ex at home). 2. Gait training for R step length, stairs and without AD to tolerance. 3. L HS strength, may try FES on DF L and get out to gym for general strength as tolerated. Balance/Gait/Functional tests - Balance/Special Test Scores Lower Extremity Functional Score: 33 Goals Goal 1:: PATIENT WILL DEMONSTRATE INDEP AND SAFE GAIT ON LEVEL SURFACES X 400 FEET WITH TIERA WALKER. Goal Time Frame: 4-6 Weeks Goal Progress: Goal Met Goal 2:: INCREASE ADRIAN LE STRENGTH TO 4-5/5 (EXCEPT L ANKLE) TO EASE ADL'S Goal Time Frame: 8-12 Weeks Goal Progress: Progressing Goal 3:: PATIENT WILL BE ABLE TO GO UP AND DOWN ONE FLIGHT OF STEPS INDEP'LY AND SAFELY WITH ONE HR AND TIERA-WALKER. Goal Time Frame: 8-12 Weeks Goal Progress: Goal Met Goal 4:: PATIENT WILL BE INDEP WITH HEP FOR CONTINUED IMPROVEMENT ONCE FORMAL PHYSICAL THERAPY CONCLUDES. Goal Time Frame: 8-12 Weeks Goal Progress: needs standing ex, approp Goal 5:: Walk with LBQC and good right step length and complete FW linear motion 400 feet I Goal Time Frame: 6-8 Weeks Goal Progress: NEW GOAL Goal 6:: Walk 100 feet I without AD safely adn tolerate FGA Goal Time Frame: 6-8 Weeks Goal Progress: NEW GOAL Anticipated Interventions Patient/Client Instruction: Educate patient on: Condition, Plan of Care, Risk Factors For the Purpose of:: To improve self management Therapeutic Exercise to Include: Strength training, Endurance training, Balance training, Coordination, Body mechanics, Postural training, Flexibilty training, Gait and locomotor training, Neuromotor development, In an aquatic setting, Passive ROM, Active ROM, Dynamic Lumbar Stabilization Comment: CONSIDER AQUATIC THERAPY AT RE-CHECK. For the Purpose of:: To decrease pain, To increase ROM, To improve muscle performance and motor function, To increase tolerance to activity/condition/position, To improve performance and independence with ADL's, To decrease level of supervision to perform tasks, To improve ability of physical actions for home/community/work/leisure, To improve gait and locomotor functions, To improve safety with gait, To improve safety, To improve self management Please do not hesitate to contact me at [phone] by phone or if you have questions or concerns regarding this new plan of care! Sincerely, Vinicius Galeano, DPT, OCS, CSCS
--- NOTE | 2021-02-05 15:07 | HP.PTREVAL ---
Lita Dao, [facility], It has been my pleasure to treat LAINE ANDRES over the last 20 visits for CVA. Please see the progress note below for an update on the physical therapy plan of care! Subjective: Pt feels that she is doing really well. She usually uses a cane but walked in without one today. She has an AFO on her L. Objective/Function: Pt walks with a single point cane in the R hand with decreased R LE step length. She has fairly good balance walking in and out of machines and turning corners. Weakness persists on her L LE. Plan Plan: Continue 3x/week for 4-6 weeks for... 2. Gait training for R step length, stairs and without AD to tolerance. 3. L HS strength, may try FES on DF L and get out to gym for general strength as tolerated. Balance/Gait/Functional tests - Balance/Special Test Scores Lower Extremity Functional Score: 40 Goals Goal 1:: PATIENT WILL DEMONSTRATE INDEP AND SAFE GAIT ON LEVEL SURFACES X 400 FEET WITH TIERA WALKER. Goal Time Frame: 4-6 Weeks Goal Progress: Goal Met Goal 2:: INCREASE ADRIAN LE STRENGTH TO 4-5/5 (EXCEPT L ANKLE) TO EASE ADL'S Goal Time Frame: 8-12 Weeks Goal Progress: Progressing Goal 3:: PATIENT WILL BE ABLE TO GO UP AND DOWN ONE FLIGHT OF STEPS INDEP'LY AND SAFELY WITH ONE HR AND TIERA-WALKER. Goal Time Frame: 8-12 Weeks Goal Progress: Goal Met Goal 4:: PATIENT WILL BE INDEP WITH HEP FOR CONTINUED IMPROVEMENT ONCE FORMAL PHYSICAL THERAPY CONCLUDES. Goal Time Frame: 8-12 Weeks Goal Progress: needs standing ex, approp Goal 5:: Walk with LBQC and good right step length and complete FW linear motion 400 feet I Goal Time Frame: 6-8 Weeks Goal Progress: NEW GOAL Goal 6:: Walk 100 feet I without AD safely adn tolerate FGA Goal Time Frame: 6-8 Weeks Goal Progress: NEW GOAL Anticipated Interventions Patient/Client Instruction: Educate patient on: Condition, Plan of Care, Risk Factors For the Purpose of:: To improve self management Therapeutic Exercise to Include: Strength training, Endurance training, Balance training, Coordination, Body mechanics, Postural training, Flexibilty training, Gait and locomotor training, Neuromotor development, In an aquatic setting, Passive ROM, Active ROM, Dynamic Lumbar Stabilization Comment: CONSIDER AQUATIC THERAPY AT RE-CHECK. For the Purpose of:: To decrease pain, To increase ROM, To improve muscle performance and motor function, To increase tolerance to activity/condition/position, To improve performance and independence with ADL's, To decrease level of supervision to perform tasks, To improve ability of physical actions for home/community/work/leisure, To improve gait and locomotor functions, To improve safety with gait, To improve safety, To improve self management Please do not hesitate to contact me at [phone] by phone or if you have questions or concerns regarding this new plan of care! Sincerely, Yolanda Shetty, MPT
--- NOTE | 2021-02-05 15:51 | OTREVAL_ITS ---
Lita Dao, PARK INTERPRETER-C, It has been my pleasure to treat LAINE ANDRES over the last 16 visits for CVA. Please see the progress note below for an update on the occupational therapy p john of care! Subjective: pt arrives from Physical therapy ambulating with straight cane- pt has wrist/hand brace on but hand is reece out of the wrist brace. pt states she was ambulating without cane for 4 days at home. Pt states she has been doing her UE exercises 1x a day and sometimes two times a day (about 2x a week she will get exercises done in a week). pt states she feels her leg and balance is returning more than her arm but does admit she is up and walking more frequently during the day. Objective/Function: pt continues to struggle with tone of the UE-. elbow/ forearm/ wrist and digits- Tone is limiting fluid movement patterns- at this time pt may benefit from further mtg. of tone with possible Botox injections- pt was instructed yesterday to take her muscle relaxer 3x a day pt is trying to figure out when to take it as this medication makes her tired.,. pt arrives with resting hand brace on- pt is tolerating therapy and demo understanding of her HEP- therapist advised to perform exercise 6-8 x a day instead of 1-2x a day that she had been doing-. pt would continue to benefit from skilled OT services 2-3x week for 8 weeks. Plan Frequency: 3x /Week Duration: 4 Weeks Plan: Cont POC Goals - Goals Patient Goals: Regain Mobility, Regain Strength, Return to Work, Improve Fine Motor Skills, Use Hand/Wrist/Arm Normally Again, Sleep Better, Increase ROM, Be More Independent in ADLS Goal:: pt will demonstrate shoulder flex to 140* or greater to increase pts independence with ADLs and IADLs by d/c. pt will demonstrate full elbow fl ex/ext to increase pts independence with ADLs and IADLs by d/c. pt will demonstrate functional wrist flex/extension to increase pts independence with ADLs and IADLs by d/c. Pt will demonstrate ability to grasp objects and fully extend fingers to increase pts independence in ADLs and IADLs by d/c. Goal:: pt will demonstrate an increase in sensation with monofilaments to 2.38 to prevent further injury by d/c. Goal:: Pt will self-report an increase in her ADL independence during morning dressing tasks from dependent to min assist by d/c. Goal:: pt will self-report ability to transfer from bed to w/c independently by d/c. Anticipated Interventions Anticipated Interventions: A/AAROM/PROM, Strengthening, Joint Protection/Energy Conservation, Ergonomic Education, Fine Motor Coord/Obed, Neuro Reeducation, Sensory Stimulation, ADL Training, Caregiver Training, Home Program Please do not hesitate to contact me at [phone] by phone or if you have questions or concerns regarding this new plan of care! Sincerely, Jade Tellez, OTR/L, CHT
--- NOTE | 2021-03-23 15:09 | HP.PTREVAL ---
Lita Dao, [facility], It has been my pleasure to treat LAINE ANDRES over the last 26 visits for CVA. Please see the progress note below for an update on the physical therapy plan of care! Subjective: I dont use shit at home referring to aD. I was sick at home and then forgot last appointment.LB hurts at times adn has history of two back surgeries. Stairs at home backwards down steps and feels safe. No falls lately. L arm has been giving her trouble with pain at back of elbow. Needs help dressing from mom whom she lives with. Spends day reading, news, and doing band exercises for legs bilaterally. Walking a block on grass every other day taking 7 minutes(between houses) Objective/Function: Walks without AD into PT with wide BO and poor L LE motor control including knee slamming into ext upon WB but improving strength and ability to hold herself up. Takes good R step length 80% of time today when walking. Steps are reciprocal with one rail, weak on L but able. No funcitonal ROm in L ankle. Brace is fititing well and has been adjusted by ministerio since last session. Skin defect is clearing up and scarred over and does not appera to be a problem anymore. Standing balance is good but avoids L WB, CAN SLS L with UE support but knee must be fuly extended. tolerated FGA well today. LB is hurting and LB is extemely stiff , max limited in flex and ext with pain both directions, min limited in SB B. Pt imnproving funciton overall but back pain and stiffness limiting happiness with funciton. Appropriate to cotninue with fair prognosis per pOC. Plan Plan: 2x/week for 4 visits this year due to insurance limitations. Please work on. LB ROM all directions and stretching LB, ROM LB and core strength to I home program. Also work on motor control in L HS and quad, hip. EG to recheck in New Year and consider pool (pt interested adn available in community.) Balance/Gait/Functional tests - Balance/Special Test Scores Functional Gait Assessment Score: 20 % Disability: 33.3400 Lower Extremity Functional Score: 34 Goals Goal 1:: LBP down to 1/10 at worst and tolerable.manageable with LB HEP Goal Time Frame: 2-4 Weeks Goal Progress: NEW GOAL Goal 2:: INCREASE ADRIAN LE STRENGTH TO 4-5/5 (EXCEPT L ANKLE) TO EASE ADL'S Goal Time Frame: 8-12 Weeks Goal Progress: Goal Met Goal 3:: Pt score 24/30 on FGA to limit fall risk and max mobility. TUG <10 seconds Goal Time Frame: 2-4 Weeks Goal Progress: NEW GOAL Goal 4:: PATIENT WILL BE INDEP WITH HEP FOR CONTINUED IMPROVEMENT ONCE FORMAL PHYSICAL THERAPY CONCLUDES. Goal Time Frame: 8-12 Weeks Goal Progress: noncompliant Goal 5:: Walk with LBQC and good right step length and complete FW linear motion 400 feet I Goal Time Frame: 6-8 Weeks Goal Progress: Goal Met Goal 6:: Walk 100 feet I without AD safely adn tolerate FGA Goal Time Frame: 6-8 Weeks Goal Progress: Goal Met Anticipated Interventions Patient/Client Instruction: Educate patient on: Condition, Plan of Care, Risk Factors For the Purpose of:: To improve self management Therapeutic Exercise to Include: Strength training, Endurance training, Balance training, Coordination, Body mechanics, Postural training, Flexibilty training, Gait and locomotor training, Neuromotor development, In an aquatic setting, Passive ROM, Active ROM, Dynamic Lumbar Stabilization Comment: CONSIDER AQUATIC THERAPY AT RE-CHECK. For the Purpose of:: To decrease pain, To increase ROM, To improve muscle performance and motor function, To increase tolerance to activity/condition/position, To improve performance and independence with ADL's, To decrease level of supervision to perform tasks, To improve ability of physical actions for home/community/work/leisure, To improve gait and locomotor functions, To improve safety with gait, To improve safety, To improve self management Please do not hesitate to contact me at [phone] by phone or if you have questions or concerns regarding this new plan of care! Sincerely, Vinicius Galeano, DPT, OCS, CSCS
--- NOTE | 2021-04-03 15:54 | HP.OTREVAL ---
Lita Dao, ELEMENTARY INSTRUCTIONAL COACH-C, It has been my pleasure to treat LAINE ANDRES over the last 20 visits for CVA. Please see the progress note below for an update on the occupational therapy plan of care! Subjective: pt arrives to OT- states she had not been able to attend therapy services due to illness of herself and family- pt arrives today with resting orthosis on states she has noticed a decrease in tone of left wrist and fingers since using it- reports compliance with her HEP - Objective/Function: pt demo with increase in elbow ROM - triceps tires after 5 attempts of ext following biceps flex - noted decrease in wrist and finger tone since pt has been using resting hand orthosis-. pt demo with initiation of shoulder flex and digit flex pt is making gains at this time and would benefit from skilled OT services 2x week for 8 weeks. Plan Frequency: 2-3x /Week Duration: 2 Months Plan: Cont POC Goals - Goals Patient Goals: Regain Mobility, Regain Strength, Return to Work, Improve Fine Motor Skills, Use Hand/Wrist/Arm Normally Again, Sleep Better, Increase ROM, Be More Independent in ADLS Goal:: pt will demonstrate shoulder flex to 140* or greater to increase pts independence with ADLs and IADLs by d/c. pt will demonstrate full elbow flex/ext to increase pts independence with ADLs and IADLs by d/c. pt will demonstrate functional wrist flex/extension to increase pts independence with ADLs and IADLs by d/c. Pt will demonstrate ability to grasp objects and fully extend fingers to increase pts independence in ADLs and IADLs by d/c. Goal:: pt will demonstrate an increase in sensation with monofilaments to 2.38 to prevent further injury by d/c. Goal:: Pt will self-report an increase in her ADL independence during morning dressing tasks from dependent to min assist by d/c. Goal:: pt will self-report ability to transfer from bed to w/c independently by d/c. goal is met Anticipated Interventions Anticipated Interventions: A/AAROM/PROM, Strengthening, Joint Protection/Energy Conservation, Ergonomic Education, Fine Motor Coord/Obed, Neuro Reeducation, Sensory Stimulation, ADL Training, Caregiver Training, Home Program Please do not hesitate to contact me at [phone] by phone or if you have questions or concerns regarding this new plan of care! Sincerely, Jade Tellez, OTR/L, CHT
--- NOTE | 2021-04-25 13:49 | HP.PTREVAL_ITS ---
Lita Dao, MATERIALS HANDLING COORDINATOR-C, It has been my pleasure to treat LAINE ANDRES over the last 31 visits for CVA, L side weakness.. Please see the progress note below for an update on the physical therapy plan of care! Subjective: Im taking 4000 steps a day and doing pretty well. Wants to be able to have water proof boot to walk in the water. [facility] saw her adn they haven't done anything. Saw neurologist and will have botox in arm and gastroc. Hasn't had that yet. Ellie was busy time. doing band exercises for LE at home. Stretching ankle with towel at home. LB still hurts intermittently with walking longer distances. To 9/10 yesterday after walking but gone with sitting. It is a daily pain. Member at [facility] and has access to the pool.No seizures, no open woulds. No incontinence. Objective/Function: L ankle DF PROM -4 degrees, minimal movement in L foot. aFO in place and fits well but does not controlk for knee extension which is probably part of her intemittent knee pain with walking longer times and maybe back pain. I gait with short R step length. Very little back movement as she walks. LB aROM ext mod limtied but passively very good. flexion min limited, no pain. SB min limited without pain. Overall doing well with mobility but back pain with WB and half-way exit strategies needed addressed today. Plan Plan: 2x/week for 4 weeks for pool therapy to try to gain I(for [facility]) in LB and core strength, LE strength, postural strength, stretching for ankles into DF. Work toward I program. Pt to contact [employer] regarding AFO that can get wet, lower profile and with heel lift to help with knee extension control. New goals and fair prognosis. Balance/Gait/Functional tests - Balance/Special Test Scores Functional Gait Assessment Score: 21 % Disability: 30.0000 Lower Extremity Functional Score: 35 Goals Goal 1:: LBP down to 1/10 at worst and tolerable.manageable with LB HEP Goal Time Frame: 2-4 Weeks Goal Progress: Progressing Goal 2:: LBP) 2/10 at worst and manageable with shopping trips Goal Time Frame: 4-6 Weeks Goal Progress: NEW GOAL Goal 3:: Pt score 24/30 on FGA to limit fall risk and max mobility. TUG <10 se conds Goal Time Frame: 2-4 Weeks Goal Progress: Not Progressing Goal 4:: PATIENT WILL BE INDEP WITH HEP FOR CONTINUED IMPROVEMENT ONCE FORMAL PHYSICAL THERAPY CONCLUDES. Goal Time Frame: 8-12 Weeks Goal Progress: mild program Goal 5:: I water ex program for core, LE postural strength , LB ROM. Goal Time Frame: 4-6 Weeks Goal Progress: NEW GOAL Goal 6:: Walk 100 feet I without AD safely adn tolerate FGA Goal Time Frame: 6-8 Weeks Goal Progress: Goal Met Anticipated Interventions Patient/Client Instruction: Educate patient on: Condition, Plan of Care, Risk Factors For the Purpose of:: To improve self management Therapeutic Exercise to Include: Strength training, Endurance training, Balance training, Coordination, Body mechanics, Postural training, Flexibilty training, Gait and locomotor training, Neuromotor development, In an aquatic setting, Passive ROM, Active ROM, Dynamic Lumbar Stabilization Comment: CONSIDER AQUATIC THERAPY AT RE-CHECK. For the Purpose of:: To decrease pain, To increase ROM, To improve muscle performance and motor function, To increase tolerance to activity/condition/position, To improve performance and independence with ADL's, To decrease level of supervision to perform tasks, To improve ability of physical actions for home/community/work/leisure, To improve gait and locomotor functions, To improve safety with gait, To improve safety, To improve self management Please do not hesitate to contact me at [phone] by phone or if you have questions or concerns regarding this new plan of care! Sincerely, Vinicius Galeano, DPT, OCS, CSCS
--- NOTE | 2021-05-28 14:43 | HP.PTREVAL_ITS ---
Lita Dao, PARTS CLERK PLANT MAINTENANCE-C, It has been my pleasure to treat LAINE ANDRES over the last 32 visits for CVA, L side weakness.. Please see the progress note below for an update on the physical therapy plan of care! Subjective: No new AFO but did put heel lift in L. Was not stable enough on the L foot to get in water. Wants to work on strength. Doing HEP at home including band for ankle, weight shifts at counter. Sleeping OK. Activities : doing OK just needs strength to stand longer. Objective/Function: FGA 19 and TUG 17. Pt getting around very well despite her gait abnormalites due to Lsided motor dysfunction from stroke. Toe pointes out to side and knee is tonic and stays extended much of time, harder to bend knee. new AFO with heel lift helps to manage hyperextension much better. today. steps are reciprocal when asked to use L but prefers R, needs rail. Able to trasnfer out of chair without UE but surpises herself doing so. Overall doing well especially considering not much PT in last month since last POC since she changed her mind on d/c to water program. now wishes to joing community gym and wants to lear a more comprehensive program for that. Fair prognosis to get I with program. Plan Plan: 1-2x/week for teachng LE and core and postural program that patient can then apply at [facility] to continue I with pics and list. Focus on LE strength, functional strength combining balance and functiona dn motor control.(leg press, knee flex, ext, hip abd, single arm row and pull down, trun ext, squat, lunge, step up. Will need list and pics once I and safe. Balance/Gait/Functional tests - Balance/Special Test Scores Functional Gait Assessment Score: 19 % Disability: 36.6700 Lower Extremity Functional Score: 35 TUG Test Time Seconds: 17 Tug Test: <20 sec.=mostly independent Goals Goal 1:: LBP down to 1/10 at worst and tolerable.manageable with LB HEP Goal Time Frame: 2-4 Weeks Goal Progress: 10 at times, to tell doc Goal 2:: LBP) 2/10 at worst and manageable with shopping trips Goal Time Frame: 4-6 Weeks Goal Progress: Goal Met, walk in aisles. Goal 3:: Pt score 24/30 on FGA to limit fall risk and max mobility. TUG <10 seconds Goal Time Frame: 2-4 Weeks Goal Progress: Not Progressing Goal 4:: PATIENT WILL BE INDEP WITH HEP FOR CONTINUED IMPROVEMENT ONCE FORMAL PHYSICAL THERAPY CONCLUDES. Goal Time Frame: 2-4 Weeks Goal Progress: approp for gym Goal 5:: I water ex program for core, LE postural strength , LB ROM. Goal Time Frame: 4-6 Weeks Goal Progress: NA Goal 6:: Pt will have list and be safe with an I strength and balance and gait program to be done in [facility]. Goal Time Frame: 2-4 Weeks Goal Progress: NEW GOAL Anticipated Interventions Patient/Client Instruction: Educate patient on: Condition, Plan of Care, Risk Factors For the Purpose of:: To improve self management Therapeutic Exercise to Include: Strength training, Endurance training, Balance training, Coordination, Body mechanics, Postural training, Flexibilty training, Gait and locomotor training, Neuromotor development, In an aquatic setting, Passive ROM, Active ROM, Dynamic Lumbar Stabilization Comment: CONSIDER AQUATIC THERAPY AT RE-CHECK. For the Purpose of:: To decrease pain, To increase ROM, To improve muscle performance and motor function, To increase tolerance to acti vity/condition/position, To improve performance and independence with ADL's, To decrease level of supervision to perform tasks, To improve ability of physical actions for home/community/work/leisure, To improve gait and locomotor functions, To improve safety with gait, To improve safety, To improve self management Please do not hesitate to contact me at [phone] by phone or if you have questions or concerns regarding this new plan of care! Sincerely, Vinicius Galeano, DPT, OCS, CSCS
--- NOTE | 2021-06-25 13:57 | HP.PTDCSUM_ITS ---
It has been my pleasure to treat LAINE ANDRES referred by GERALDINE Go, with the diagnosis of CVA, L side weakness. for a total of 39 visit(s). Discharge Date: 06/25/21 Please see the following information for a summary of their discharge status. Subjective: Will continue Workout at [facility]. Has workout. Will get Botox in arm and possibly in leg muscles but not scheduled yet. LBP stays at 1 unless walks on concrete too much. ready to be done with therapy and will call if needs more. LB Pain Intensity (Out of 10): 0 Elbow Pain Intensity (Out of 10): 0 % Improvement: 80 Objective/Function: l AFO in place, pt to get ahold of [employer] or call for referral to [employer] [facility]. Walks and stands with diminshed weight through L side and decreased motor control on left. Knee slams into extension much less than before heel lift placed in AFO. Pt verbalizes ready to be done with PT adn will call if gets botox in leg or gets new AFO or if back pain returns. Goal 1:: LBP down to 1/10 at worst and tolerable.manageable with LB HEP Goal Progress: Goal Met Goal 2:: LBP) 2/10 at worst and manageable with shopping trips Goal Progress: Goal Met, walk in aisles. Goal 3:: Pt score 24/30 on FGA to limit fall risk and max mobility. TUG <10 seconds Goal Progress: Not Progressing Goal 4:: PATIENT WILL BE INDEP WITH HEP FOR CONTINUED IMPROVEMENT ONCE FORMAL PHYSICAL THERAPY CONCLUDES. Goal Progress: Goal Met Goal 5:: I water ex program for core, LE postural strength , LB ROM. Goal Progress: NA Goal 6:: Pt will have list and be safe with an I strength and balance and gait program to be done in communiuty at [facility]. Goal Progress: Goal Met Plan: d/c Discharge Comments: pt to continue workout at local gym. Appropriate to send back if gets concerns with gait with new AFO or botox in LE or back pain increases. If there are questions or concerns regarding this patient's physical therapy, please feel free to call me at [phone]. Thank you for the referral of this patient. Sincerely, Vinicius Galeano, DPT, OCS, CSCS Balance/Gait/Functional tests - Balance/Special Test Scores Functional Gait Assessment Score: 19 % Disability: 36.6700 Lower Extremity Functional Score: 34 TUG Test Time Seconds: 17 Tug Test: <20 sec.=mostly independent
== END 2021-06-25 19:00 | disposition home or self-care (01) ==
LOC: PT 13:00
PROVIDERS: PCP Nurse Practitioner Primary Care; Referring Provider Nurse Practitioner Primary Care; Visit Provider Nurse Practitioner Primary Care
DX: I69.30 Unspecified sequelae of cerebral infarction (principal)
CPT/HCPCS: 97110; 97112; 97113; 97116; 97140; 97162; 97164; 97166; 97530; 97760

== ENCOUNTER 2023-02-03 12:31 | Emergency (ER) | payer MEDICAID, SELFPAY ==
[2023-02-03 12:32] VITALS: BP 128/89; PULSE 91; RESP 16; TEMP 35.6; O2SAT 97; BMI 32.6
--- NOTE | 2023-02-03 12:50 | US_ITS ---
STUDY: ABDOMINAL ULTRASOUND - RIGHT UPPER QUADRANT REASON FOR VISIT: Female, 32 years old epigastric pain TECHNIQUE: Ultrasound evaluation of the right upper quadrant was performed with real-time and static denise-scale imaging. TECHNICAL QUALITY: Adequate. COMPARISON: None. FINDINGS: Liver: The liver measures 16.1 cm. There is increased echogenicity consistent with fatty infiltration. The bile ducts are within normal limits. There is hepatic color flow. The direction of portal flow is hepatopetal. There is no demonstrated mass lesion. Gallbladder: The patient is status post cholecystectomy. Common Bile Duct (C.B.D.): The common bile duct measures 4 mm. Pancreas: Normal size of the head, body and tail of the pancreas. There is normal echogenicity of the pancreas. There is no demonstrated pancreatic mass or cyst. Right Kidney: Normal size of the right kidney. The right kidney measures 10.6 cm x 5.1 cm x 3.9 cm. Normal renal cortex. The right cortex measures 1.0 cm. There is no demonstrated renal mass or cyst. There is no right hydronephrosis. US/Gallbladder IMPRESSION: Fatty infiltration of the liver. Electronically Signed: Uri Rayo MD at 15:37 EDT ,
--- NOTE | 2023-02-03 12:55 | EX.ED.DYSGE1 ---
HPI <GERALDINE Guerra - Last Filed: 02/03/23 15:47> History of Present Illness Chief Complaint: Nausea/Vomiting Narrative Narrative: Patient is a 42-year-old female with history of stroke who has left-sided arm, leg deficit. Patient states that she has had been having a long history of nausea, vomiting. Patient's vomiting has been ongoing for multiple months however over the last month she is noted to be getting worse. This last week, she states has been unable to eat or drink or keep her home medications down. Patient has seen her PCP for this, patient was placed on omeprazole however this did not help. Patient does use marijuana daily. She does not currently have a marijuana card. Denies any weakness, worsening weakness, fever or chills. She denies any blood in her stool or vomit. PFSH <GERALDINE Guerra - Last Filed: 02/03/23 15:47> PFSH Home Medications metoclopramide HCl 10 mg tablet (Reglan) 10 mg PO Q6H PRN nausea and vomiting #20 tabs 02/03/23 [Rx Last Taken Unknown] Allergy/AdvReac Type Severity Reaction Status Date / Time No Known Allergies Allergy Verified 02/03/23 12:32 Family History (Updated 09/08/20 @ 15:11 by Carmen Heck) Grandmother CVA (cerebral vascular accident) Grandfather Myocardial infarction Surgical History History of cholecystectomy Social History (Updated 09/08/20 @ 15:11 by Carmen Heck) Smoking Status: Current every day smoker tobacco type: cigarettes Tobacco: How many years used: 12 ROS <GERALDINE Guerra - Last Filed: 02/03/23 15:47> ROS ED ROS Narrative Constitutional: Negative for fever, chills, weight loss, weakness Eyes: Negative for vision loss, vision change, double vision ENT: Negative for any sore throat, ear pain, congestion Cardiovascular: Negative for any chest pain, tightness, palpitations Respiratory: Negative for any cough, sputum production, hemoptysis, dyspnea, dyspnea on exertion, orthopnea Gastrointestinal: Negative for any constipation, blood in stool, blood in vomit. Positive for epigastric pain, nausea, vomiting, diarrhea : Negative for any urinary frequency, dysuria, retention, blood in urine Muscle skeletal: Negative for any muscle joint pain, stiffness, myalgias, arthralgias, neck pain, back pain Neurological: Negative for any headache, syncope, numbness or tingling, dizziness Skin: Negative for any rashes, lumps, itching, abrasions, lacerations Psychiatric: Negative for any depression, anxiety, stress, suicidal ideation, homicidal ideation Hematologic: Negative for any easy bruising, excessive bruising, easy bleeding Allergies: Negative for any eczema, hives, rash EXAM <GERALDINE Guerra - Last Filed: 02/03/23 15:47> Physical Exam Narrative Exam Narrative: Vital signs reviewed. Patient is in no obvious distress, vital signs are stable HEET: Head normocephalic atraumatic, TMs clear bilaterally. Posterior pharynx is clear, dry mucous membranes. Nares clear bilaterally. Neck: Supple with no lymphadenopathy or tenderness. No signs of meningismus, negative jolt sign. Cardiac: Regular rate and rhythm no murmurs gallops or rubs, equal peripheral pulses bilaterally. Respiratory: Lungs clear to auscultation bilaterally. No chest tenderness. Abdomen: Soft, nontender, nondistended. No abdominal bruit or pulsatile masses. No hepatosplenomegaly. Patient has pain more towards the epigastric area. No significant pain at the McBurney's point. Negative Hector sign. No pain in the left abdomen. Extremities: No peripheral edema, no signs of gross trauma or deformity. Active full range of motion of all extremities. Neuro: Cranial nerves II through XII intact, no focal neurological deficits. Skin: Clean dry and intact with no rash, purpura, petechiae, vesicles or pustules. Backs/flank: No CVA tenderness, no midline spinal tenderness, no deformity. Psych: Normal mood and affect. No SI, HI or acute psychosis. Const Vital Signs: 02/03/23 12:32 02/03/23 15:00 Temperature 96.1 F L Temperature Source Temporal Pulse Rate 91 16 L Respiratory Rate 16 Blood Pressure 128/89 H 150/118 H Blood Pressure Mean 102 128 Pulse Ox 97 98 Oxygen Delivery Method Room Air <Dr. En Nguyen MD - Last Filed: 02/03/23 14:30> Physical Exam Const Vital Signs: 02/03/23 12:32 02/03/23 15:00 Temperature 96.1 F L Temperature Source Temporal Pulse Rate 91 16 L Respiratory Rate 16 Blood Pressure 128/89 H 150/118 H Blood Pressure Mean 102 128 Pulse Ox 97 98 Oxygen Delivery Method Room Air [facility] <Osmin KimGERALDINE - Last Filed: 02/03/23 15:47> [facility] Lab Data Labs: Laboratory Results - last 24 hr 02/03/23 02/03/23 13:09 15:02 WBC 7.7 RBC 5.17 Hgb 16.0 H Hct 47.4 H MCV 91.7 MCH 30.9 MCHC 33.8 RDW Std Deviation 41.6 RDW Coeff of Solo 12.4 Plt Count 314 MPV 9.7 Immature Gran % (Auto) 0.500 Neut % (Auto) 71.6 H Lymph % (Auto) 20.2 [place] % (Auto) 4.7 Eos % (Auto) 1.6 Baso % (Auto) 1.4 H Absolute Neuts (auto) 5.5 Absolute Lymphs (auto) 1.56 Nucleated RBC % 0 Sodium 137 Potassium 3.8 Chloride 105 Carbon Dioxide 25.0 Anion Gap 7 BUN 10 Creatinine 1.02 Estim Creat Clear Calc 74.81 Est GFR (MDRD) Af Amer 81 Est GFR (MDRD) Non-Af 67 BUN/Creatinine Ratio 9.8 L Glucose 104 Calcium 9.3 Total Bilirubin 0.70 AST 42 H ALT 79 H Alkaline Phosphatase 71 Total Protein 8.3 H Albumin 4.2 Globulin 4.1 Albumin/Globulin Ratio 1.0 Lipase 35 Urine Color Yellow Urine Clarity Clear Urine pH 6.0 Ur Specific [place] 1.020 Urine Protein 30 H Urine Glucose (UA) Normal Urine Ketones 50 H Urine Occult Blood Negative Urine Nitrite Negative Urine Bilirubin 1 H Urine Urobilinogen 1 H Ur Leukocyte Esterase 25 H Radiography Diagnostic Testing: Clinical Impression(s) from Imaging Studies Gallbladder Ultrasound 02/03/23 12:50 IMPRESSION: Fatty infiltration of the liver. Electronically Signed: Uri Rayo MD at 15:37 EDT , Treatment and Re-Evaluation :: Patient appears generally well, patient appears nontoxic, vital signs are stable. Presents to the emergency department with complaints of epigastric pain, nausea, vomiting, diarrhea. This been ongoing for several weeks. Patient will receive IV fluids, Zofran, Toradol. Patient will also receive IV Norflex secondary to her history of taking baclofen and has not been able to take it. Patient's work-up will include a right upper quadrant ultrasound. Differential diagnosis includes hyperemesis cannabinoid ism, choledocholithiasis, gastritis, GERD, pancreatitis. Patient's laboratory values showed slight hemoconcentration with a hemoglobin of 16. Patient's electrolytes were unremarkable, patient's AST was slightly elevated at 42 with an ALT of 79, lipase was negative. Patient's urinalysis negative. Patient received IV fluids, Zofran Toradol IV Norflex, patient felt much better. Patient did receive a right upper quadrant ultrasound that showed fatty infiltration of liver, no other acute process. On reevaluation, patient was able to pass a p.o. challenge. Patient will be given Reglan for home. Concerning for any gastroparesis, cannabinoid hyperemesis. She will follow-up outpatient. All questions answered stable for discharge. <Dr. En Nguyen MD - Last Filed: 02/03/23 14:30> [facility] Lab Data Labs: Laboratory Results - last 24 hr 02/03/23 02/03/23 13:09 15:02 WBC 7.7 RBC 5.17 Hgb 16.0 H Hct 47.4 H MCV 91.7 MCH 30.9 MCHC 33.8 RDW Std Deviation 41.6 RDW Coeff of Solo 12.4 Plt Count 314 MPV 9.7 Immature Gran % (Auto) 0.500 Neut % (Auto) 71.6 H Lymph % (Auto) 20.2 [place] % (Auto) 4.7 Eos % (Auto) 1.6 Baso % (Auto) 1.4 H Absolute Neuts (auto) 5.5 Absolute Lymphs (auto) 1.56 Nucleated RBC % 0 Sodium 137 Potassium 3.8 Chloride 105 Carbon Dioxide 25.0 Anion Gap 7 BUN 10 Creatinine 1.02 Estim Creat Clear Calc 74.81 Est GFR (MDRD) Af Amer 81 Est GFR (MDRD) Non-Af 67 BUN/Creatinine Ratio 9.8 L Glucose 104 Calcium 9.3 Total Bilirubin 0.70 AST 42 H ALT 79 H Alkaline Phosphatase 71 Total Protein 8.3 H Albumin 4.2 Globulin 4.1 Albumin/Globulin Ratio 1.0 Lipase 35 Urine Color Yellow Urine Clarity Clear Urine pH 6.0 Ur Specific [place] 1.020 Urine Protein 30 H Urine Glucose (UA) Normal Urine Ketones 50 H Urine Occult Blood Negative Urine Nitrite Negative Urine Bilirubin 1 H Urine Urobilinogen 1 H Ur Leukocyte Esterase 25 H Radiography Diagnostic Testing: Clinical Impression(s) from Imaging Studies Gallbladder Ultrasound 02/03/23 12:50 IMPRESSION: Fatty infiltration of the liver. Electronically Signed: Uri Rayo MD at 15:37 EDT , Treatment and Re-Evaluation Comments:: I have personally performed a face to face assessment of the patient and have reviewed the GEORGIE Note. I performed a substantive portion of the visit including all aspects of the following. My leslie findings include: History is recurrent vomiting for over a month, saw PCP and had some elevated liver enzymes scheduled for right upper quadrant ultrasound, has had gallbladder removed remotely. Had a history of an ischemic stroke and has some chronic deficits from that which are unchanged. Increased vomiting over the past week especially in the past 3 days difficulty keeping things down. Mild epigastric pain but for the most part, just nausea and vomiting no pain. Nonbloody, no melena, has been trying bismuth subsalicylate but no other medications. Exam is obese, NAD, well-appearing benign abdomen. Normal bowel sounds present. Medical Decison Making labs including liver enzymes obtained, AST and ALT are just barely in the abnormal range, no hyperbilirubinemia. Feeling better after IV fluids and Zofran. Gastroparesis due to stroke in the differential diagnosis as are other hepatobiliary issues; ultrasound is not scheduled for a month or 2, so we are obtaining the ultrasound now. Other additions or changes: [None] Discharge Plan Triage Chief Complaint: Nausea/Vomiting ED Midlevel Provider: Osmin Kim ED Provider: En Nguyen Dx/Rx/DC Orders Clinical Impression: Acute dehydration, Gastroparesis, History of stroke Instructions: Gastroparesis, ED Dehydration (Adult) Prescriptions: New metoclopramide HCl [Reglan] 10 mg tablet 10 mg PO Q6H PRN (Reason: nausea and vomiting) Qty: 20 0RF Primary Care Provider: Lita Dao NP Referrals: Lita Dao NP, [facility] [Primary Care Provider] - Activity Restrictions/Additional Instructions: Please continue to follow-up. Ensure that you get your scope. Disposition Disposition: Home, Self Care
[2023-02-03] MEDS: 0.9% Normal Saline (1000mL) 1,000 ML 1000 ML IV (13:15)
[2023-02-03] MEDS: Ketorolac 15 MG/ML Vial IV (13:15)
[2023-02-03] MEDS: Ondansetron 4 MG/2 ML Vial IV (13:15)
[2023-02-03] MEDS: Orphenadrine 60 MG/2 ML Ampul IV (13:16)
[2023-02-03 13:18] LABS: Absolute Lymphocyte Count 1.56 X10^3/uL (0.83-4.51); Absolute Neutrophil Count 5.5 X10^3/uL (2.0-7.7); Basophil# 0.11 X10^3/uL; Basophil% 1.4 % (0-1); Eosinophil# 0.12 X10^3/uL; Eosinophils% 1.6 % (0-5); Hematocrit 47.4 % (37-47); Lymphocyte # 1.56 X10^3/ul (0.83-4.51); Lymphocyte % 20.2 % (19-41); Mean Corp Hgb Conc 33.8 g/dL (32-36); Mean Corpuscular Hgb 30.9 pg (27.0-32.0); Mean Corpuscular Volume 91.7 fL (81-99); Mean Platelet Vol. 9.7 fl (6.2-12.0); Monocyte# 0.36 X10^3/uL; Monocyte% 4.7 % (0-10); NRBC Flagged by Analyzer 0 % (0-5); Neutrophil # 5.52 X10^3/uL (2.7-7.7); Neutrophil % 71.6 % (47-70); Platelet Count 314 K/mm3 (150-450); RBC Distribution Width CV 12.4 % (11.6-14.6); RBC Distribution Width SD 41.6 fl (35.1-43.9); Red Blood Count 5.17 M/mm3 (4.2-5.4); White Blood Count 7.7 K/mm3 (4.4-11.0)
[2023-02-03 13:32] LABS: AST(SGOT) 42 U/L (15-37); Alanine Aminotransfer ALT/SGPT 79 U/L (13-56); Albumin, Serum 4.2 g/dL (3.2-5.0); Alkaline Phosphatase 71 U/L (45-117); Anion Gap 7 (5-15); BUN 10 mg/dL (7-18); BUN/Creat Ratio 9.8 RATIO (10-20); Calcium,Total 9.3 mg/dL (8.5-10.1); Chloride 105 mmol/L (98-107); Creatinine, Serum 1.02 mg/dL (0.55-1.02); EST Glomerular Filtration Rate 67 mL/min (>60); Est Glom Filt Rate - Afr Amer 81 mL/min (>60); Estimated Creatinine Clearance 74.81 ml/min; Globulin 4.1 g/dL (2.2-4.2); Glucose 104 mg/dL (74-106); Lipase 35 U/L (13-75); Potassium 3.8 mmol/L (3.5-5.1); Protein, Total 8.3 g/dL (6.4-8.2); Sodium Level 137 mmol/L (136-145)
[2023-02-03 15:00] VITALS: BP 150/118; PULSE 16; O2SAT 98
[2023-02-03 15:25] LABS: Bacteria 0 SEEN /hpf (None Seen); Red Blood Cells-Urine 0 SEEN /hpf (0-5)
[2023-02-03 15:33] LABS: Color, Urine Yellow (Yellow); Glucose, Dipstick Normal (Normal); Ketone-Dipstick 50 mg/dl (Negative); Leukocyte Esterase-Dipstick 25 /ul (Negative); Nitrite-Dipstick Negative (Negative); Occult Blood-Urine Negative /ul (Negative); Protein-Dipstick 30 mg/dl (Negative); Urine Clarity Clear (Clear); Urine Urobilinogen 1 mg/dl (Normal)
[2023-02-03 15:42] LABS: Urine Bilirubin Dipstick 1 mg/dL (Negative)
[2023-02-03 15:47] LABS: Mucous, Urine 2+ /hpf (<or=2+); Squamous Epithelial Cells - UA 0-5 SEEN /hpf (5-10); White Blood Cells 0-5 SEEN /hpf (0-5)
[2023-02-03 15:50] LABS: Internal QC Validated? YES +Cl - CLEAR BKGD; Pregnancy, Urine Negative Negative; Record Kit Lot#,Urine Preg 667200
== END 2023-02-03 16:02 | disposition home or self-care (01) ==
PROVIDERS: Nurse Practitioner; Emergency Provider Emergency Medicine; PCP Nurse Practitioner Primary Care; Visit Provider Emergency Medicine
DX: E86.0 Dehydration (principal); I69.354 Hemiplegia and hemiparesis following cerebral infarction affecting left non-dominant side; K31.84 Gastroparesis; F17.210 Nicotine dependence, cigarettes, uncomplicated
CPT/HCPCS: 76705; 80053; 81001; 81025; 83690; 85025; 96361; 96374; 96375; 99283; J7030; A4216; J2405

== ENCOUNTER 2024-03-14 20:25 | Emergency (ER) | payer MEDICAID, SELFPAY ==
[2024-03-14 20:27] VITALS: BP 117/81; PULSE 80; RESP 18; TEMP 36.3; O2SAT 97; BMI 33.0
--- NOTE | 2024-03-14 20:45 | RAD_ITS ---
INDICATION: Trauma, fall, injury pain EXAMINATION/TECHNIQUE: X-RAY - LEFT XR Elbow Min 3 Views 4 VIEWS COMPARISON: None. FINDINGS: SOFT TISSUES: No soft tissue swelling or gas. No radiopaque foreign body. BONES/JOINTS: Mildly displaced intra-articular fracture of the lateral humeral epicondyle. Joint spaces anatomically aligned. No sclerotic or destructive changes observed. RAD/Elbow min 3 Views IMPRESSION: Intra-articular fracture of the lateral humeral epicondyle. Electronically Signed: Nazario Bhakta MD at 21:35 EST ,
--- NOTE | 2024-03-14 20:54 | EDS_ITS ---
HPI History of Present Illness Chief Complaint: Upper Extremity Injury Detail of Chief Complaint: Patient had mechanical fall injuring her left elbow. Informant: patient Occured/Mechanism Mechanism/Context: Yes blunt trauma, Yes fall and Yes same level fall Comment: Patient tripped on her shoe. She has a foot drop. She has a foot drop brace. Onset/Context/Timing Onset: Hours Context: Sudden Onset Timing: Continuous Quality of Pain: Dull Location: Left elbow. Current Severity: Mild Maximum Severity: Mild Worsened by: Patient has altered sensation due to prior right hemispheric stroke Relieved by: 9 use Associated Symptoms Associated Symptoms: Negative for Parasthesia or Weakness Narrative Narrative: Patient is a 33-year-old woman. She has prior history of stroke. She is on a baby aspirin a day. She had a mechanical fall. She landed on her left arm/upper extremity. She complains of pain left elbow. She denies shoulder pain, wrist pain or hand pain. She did hit her face on the ground. She had no loss of conscious. She is not amnestic. She was not dazed. She denies headache. She has no complaint of neck pain. Prior similar symptoms: No Recent Illness/Hospitalization: No PFSH PFS Medical History Stroke Home Medications ?Medication ?Instructions ?Recorded ?Last Taken ?Type metoclopramide HCl 10 mg tablet 10 mg PO Q6H PRN nausea and 02/03/23 Unknown Rx (Reglan) vomiting #20 tabs oxycodone-acetaminophen 5 mg-325 1 tab PO Q6H PRN PRN pain 5 days 03/14/24 Unknown Rx mg tablet #20 TABLETS Allergy/AdvReac Type Severity Reaction Status Date / Time No Known Allergies Allergy Verified 03/14/24 20:26 Family History Grandmother CVA (cerebral vascular accident) Grandfather Myocardial infarction Surgical History History of cholecystectomy Social History Smoking Status: Current every day smoker tobacco type: cigarettes Tobacco: How many years used: 12 ROS ROS ED Neurologic Neurologic: Reports paresthesias LUE and LLE and weakness; Denies headache(s) Hematologic/Lymphatic Hematologic/Lymphatic: Denies easy bleeding or easy bruising EXAM Physical Exam Const Vital Signs: 03/14/24 20:27 03/14/24 20:32 Temperature 97.3 F L Temperature Source Temporal Pulse Rate 80 Respiratory Rate 18 Respiratory Effort Normal Non-Labored Respiratory Depth Normal Respiratory Pattern Normal Blood Pressure 117/81 H Blood Pressure Mean 93 Pulse Ox 97 Oxygen Delivery Method Room Air Room Air Positive well nourished and well developed General Appearance ED: well developed; Negative for cyanotic, diaphoretic or NAD HEENT Reports moist mucous membranes normocephalic and atraumatic Eyes PERRL and EOMs intact bilaterally Neck full ROM and supple Resp normal respiratory effort Cardio regular rate and regular rhythm Extremity Negative for normal to inspection Extremity Narrative: Contracture left upper extremity. Tapping the olecranon elicits crepitus. The elbow is swollen. She has limited range of motion due to prior stroke. Radial pulses palpable. There is no pain the patient with the clavicle AC joint. There is no pain the patient over the proximal humerus. There is no pain ovation of the distal radius or ulna. There is no pain the patient with carpal bones or metacarpal bones. There is no evidence of trauma to the digits. Neuro oriented x3, No moves all extremities, No no focal motor deficits and No no sensory deficits noted Sensorium / Orientation: alert Skin Lesions: no lesions Rashes: no rashes Trauma: no lacerations or abrasions MDM MDM MDM Narrative Medical decision making narrative: Clinically patient has a fracture of the left elbow. X-ray was obtained. Prior records were reviewed. History & Record Review Additional record(s) reviewed:: Prior inpatient record (Patient was admitted for acute ischemic right MCA a stroke July 09, 2020.She was transferred to [facility] at that time.) Radiography Chest X-Ray - ED: Read by ED Physician (Three-view x-ray of the left elbow reveals a lateral condylar fracture involving the trochlear ridge) Treatment and Re-Evaluation Narrative: There is no orthopedic surgeon on-call for no doc. Patient was for Dr. Douglass. Her history is complicated due to the fact that she has had a right hemispheric stroke. She is in physical therapy. She states she was just getting the use of her hand back. Procedures Upper Extremity Splints Upper Extremity Splint: Plaster and Long arm Splint Fabrication: Fabricated Location: Left Discharge Plan Triage Chief Complaint: Upper Extremity Injury Other Complaint: Fall ED Provider: Jong Higgins Dx/Rx/DC Orders Clinical Impression: Fracture of lateral epicondyle of left humerus, History of CVA in adulthood, Hypercholesterolemia Instructions: ED Elbow Fracture Prescriptions: New oxycodone-acetaminophen 5-325 mg tablet 1 tab PO Q6H PRN PRN (Reason: pain) 5 Days Qty: 20 0RF No Action metoclopramide HCl [Reglan] 10 mg tablet 10 mg PO Q6H PRN (Reason: nausea and vomiting) Qty: 20 0RF Primary Care Provider: Lita Dao NP Referrals: Noah Douglass MD [Med Staff - Active Staff] - As soon as possible Lita Dao NP, [facility] [Primary Care Provider] - Activity Restrictions/Additional Instructions: 1. Apply ice to your elbow 6-8 times a day. 2. Take medication as prescribed for pain 3. Keep splint absolutely clean and dry 4. Called Dr. Douglass's office in the morning. Let the office staff know you were seen in the emergency room and will need to be seen for fracture of your elbow Print Language: Indonesian Disposition Disposition: Home, Self Care
[2024-03-14] MEDS: oxyCODONE 5 MG Tablet PO (21:36)
[2024-03-14 22:14] VITALS: BP 115/89; PULSE 80; RESP 18; TEMP 36.3; O2SAT 97
== END 2024-03-14 22:42 | disposition home or self-care (01) ==
PROVIDERS: Emergency Provider Emergency Medicine; PCP Nurse Practitioner Primary Care; Visit Provider Emergency Medicine
DX: S42.432A Displaced fracture (avulsion) of lateral epicondyle of left humerus, initial encounter for closed fracture (principal); W18.09XA Striking against other object with subsequent fall, initial encounter; E78.00 Pure hypercholesterolemia, unspecified; F17.210 Nicotine dependence, cigarettes, uncomplicated; Z79.82 Long term (current) use of aspirin; Z79.899 Other long term (current) drug therapy; Z86.73 Personal history of transient ischemic attack (TIA), and cerebral infarction without residual deficits
CPT/HCPCS: 29105; 29405; 73080; 99284